=== PATIENT | female | born 1985 | race Hispanic/Latino ===

== ENCOUNTER 2020-09-05 15:00 | Inpatient (IN) | payer OTHER ==
[~2020-09-05] VITALS: Ht 157.5 cm; Wt 360.2 kg
[2020-09-05] MEDS ORDERED: LIDOCAINE HCL 2% VISCOUS 15 ML UDCUP ONE (15:26)
[2020-09-05] MEDS ORDERED: FAMOTIDINE 20MG TAB ONE (15:26)
[2020-09-05] MEDS ORDERED: MAG/ALUM/SIMETH 30 ML UDCUP ONE (15:26)
[2020-09-05] MEDS ORDERED: DICYCLOMINE 20MG (10MG/ML) AMP IM ONE (15:27)
[2020-09-05 15:53] LABS: BASOPHILS % (AUTO) 0.3 % (0.0-5.0); EOSINOPHILS % (AUTO) 0.2 % (0.0-8.0); HEMATOCRIT 46.6 % (36-48); MEAN CORPUSCULAR HEMOGLOBIN 30.3 pg (27.0-33.0); MEAN CORPUSCULAR HGB CONC 34.3 g/dL (32.0-36.0); MEAN CORPUSCULAR VOLUME 88.3 fL (79-99); MONOCYTES % (AUTO) 4.4 % (3.0-13.0); NEUTROPHILS % (AUTO) 89.8 % (40.0-77.0); PLATELET COUNT (AUTO) 272 K/uL (130-400); RED BLOOD CELL COUNT(AUTO) 5.28 MIL/uL (4.00-5.50); RED CELL DISTRIBUTION WIDTH 12.1 % (11.0-15.5)
[2020-09-05 16:01] LABS: HCG,QUAL RESULT NEGATIVE (NEGATIVE)
[2020-09-05 16:02] LABS: APPEARANCE,URINE Clear (CLEAR); BILIRUBIN,URINE Negative (NEGATIVE); COLOR,URINE Yellow (YELLOW); GLUCOSE, URINE (UA) >=1000 mg/dL (NEGATIVE); KETONES,URINE >=80 mg/dL (NEGATIVE); LEUKOCYTE ESTERASE ,URINE Negative (NEGATIVE); NITRATE,URINE Negative (NEGATIVE); OCCULT BLOOD,URINE Negative (NEGATIVE); PH,URINE 6.5 (5.0-8.0); PROTEIN,URINE Negative (NEGATIVE); UROBILINOGEN,URINE 0.2 mg/dL (0.2-1.0)
[2020-09-05 16:07] LABS: CREATININE 0.7 mg/dL (0.5-1.5); POTASSIUM 4.1 mmol/L (3.5-5.1)
[2020-09-05 16:09] LABS: BACTERIA,URINE Rare /HPF (None Seen); RBC,URINE 0-1 /HPF (0-1); SQUAMOUS EPITHELIAL CELL,UR Rare /HPF (0-2); WBC,URINE 0-1 /HPF (0-1); YEAST,URINE BUDDING Rare /HPF (None Seen)
[2020-09-05 16:11] LABS: ALBUMIN 3.7 g/dL (3.5-5.0); BILIRUBIN,TOTAL 1.2 mg/dL (0.2-1.0)
[2020-09-05] MEDS ORDERED: ZOSYN 3.375GM+NS 50ML 50 ML IV ONE (16:27)
[2020-09-05] MEDS ORDERED: INSULIN HUMULIN R 100 UNIT/ML 3ML ONE (16:28)
[2020-09-05] MEDS ORDERED: 0.9% NACL 50ML 50 ML IV ONE (16:29)
[2020-09-05] MEDS ORDERED: NACL 0.9% 1000ML 1,000 ML IV ONE (16:29)
[2020-09-05] MEDS ORDERED: LACTULOSE 20 GM/30 ML UDCUP PO PRN (17:00)
[2020-09-05 19:35] LABS: ABG BASE EXCESS -7.2 mmol/L (-2.0-3.0); ABG HCO3 16.2 mmol/L (21.0-28.0); ABG OXYGEN SATURATION 95.8 % (95.0-99.0); ABG PCO2 28 mmHg (32-45)
[2020-09-05] MEDS: FAMOTIDINE 20MG VIAL IV SCH (21:00)
[2020-09-05] MEDS: ZOSYN 3.375GM+NS 50ML 50 ML IV SCH (21:00)
[2020-09-05 21:15] VITALS: BP 139/86
[2020-09-05] MEDS: NACL 0.9% 1000ML 1,000 ML IV SCH (21:49)
[2020-09-05] MEDS: ONDANSETRON 4MG INJ IV PRN (21:49)
[2020-09-05] MEDS: INSULIN GLARGINE 100 UNITS/ML 10 ML VIAL SQ SCH (22:02)
[2020-09-05] MEDS: INSULIN HUMULIN R 100 UNIT/ML 3ML SQ SCH (22:02)
[2020-09-05] MEDS ORDERED: METF-527 PO (22:22)
[2020-09-06] VITALS (25 sets, daily range): BP systolic 84–159; BP diastolic 49–90
[2020-09-06] MEDS: INSULIN HUMULIN R 100 UNIT/ML 3ML SQ SCH ×5 (00:35→21:46)
[2020-09-06] MEDS: NACL 0.9% 1000ML 1,000 ML IV SCH ×3 (03:00→21:46)
[2020-09-06 04:24] LABS: BASOPHILS % (AUTO) 0.2 % (0.0-5.0); EOSINOPHILS % (AUTO) 0.2 % (0.0-8.0); HEMATOCRIT 45.1 % (36-48); LYMPHOCYTES % (AUTO) 9.3 % (21.0-51.0); MEAN CORPUSCULAR HEMOGLOBIN 30.7 pg (27.0-33.0); MEAN CORPUSCULAR HGB CONC 34.1 g/dL (32.0-36.0); MEAN CORPUSCULAR VOLUME 89.8 fL (79-99); MONOCYTES % (AUTO) 7.6 % (3.0-13.0); NEUTROPHILS % (AUTO) 82.2 % (40.0-77.0); PLATELET COUNT (AUTO) 233 K/uL (130-400); RED BLOOD CELL COUNT(AUTO) 5.02 MIL/uL (4.00-5.50); RED CELL DISTRIBUTION WIDTH 12.3 % (11.0-15.5); WHITE BLOOD COUNT (AUTO) 12.8 K/uL (4.8-10.8)
[2020-09-06 04:41] LABS: ALBUMIN 3.2 g/dL (3.5-5.0); CREATININE 0.7 mg/dL (0.5-1.5); POTASSIUM 3.8 mmol/L (3.5-5.1); TOTAL PROTEIN, SERUM 7.5 g/dL (6.0-8.3)
[2020-09-06] MEDS: ZOSYN 3.375GM+NS 50ML 50 ML IV SCH ×3 (05:55→21:47)
[2020-09-06] MEDS: ONDANSETRON 4MG INJ IV PRN (05:56)
[2020-09-06 08:17] LABS: HEMOGLOBIN A1C 12.1 % (4.0-6.0)
[2020-09-06] MEDS: FAMOTIDINE 20MG VIAL IV SCH ×2 (08:55→21:47)
[2020-09-06] MEDS: HYDROCODONE/ACETAMINOPHEN 5/325 MG TAB PO PRN ×2 (09:00→13:08)
[2020-09-06] MEDS ORDERED: ENOXAPARIN SODIUM 30 MG/0.3 ML SQ SCH (09:00)
[2020-09-06] MEDS ORDERED: BUPIVACAINE/PF 0.5% 30ML VIAL ONE (18:10)
[2020-09-06] MEDS ORDERED: LIDOCAINE HCL MPF 1% 5ML VIAL ONE (18:15)
[2020-09-06] MEDS ORDERED: MIDAZOLAM HCL 1 MG/ML 2ML VIAL ONE ×2 (18:15→19:51)
[2020-09-06] MEDS ORDERED: FENTANYL CITRATE PF 50 MCG/1 ML 2ML VIAL ONE (18:16)
[2020-09-06] MEDS ORDERED: PROPOFOL 10 MG/ML 20ML VIAL IV ONE ×2 (18:16→19:08)
[2020-09-06] MEDS ORDERED: ROCURONIUM 10MG/1ML SYR 10 MG/ML ML ONE (18:16)
[2020-09-06] MEDS ORDERED: NEOSTIGMINE 5MG/5ML SYR IV ONE (19:21)
[2020-09-06] MEDS ORDERED: GLYCOPYRROLATE 1 MG/5 ML SYRINGE ONE (19:21)
[2020-09-06] MEDS ORDERED: MEPERIDINE-PF 25 MG/ML SYG ONE ×2 (19:34→19:47)
[2020-09-06] MEDS ORDERED: KETOROLAC 30MG VIAL (30MG/ML) ONE (19:47)
[2020-09-06] MEDS: INSULIN GLARGINE 100 UNITS/ML 10 ML VIAL SQ SCH (21:44)
[2020-09-07] VITALS (25 sets, daily range): BP systolic 87–149; BP diastolic 49–95
[2020-09-07] MEDS: HYDROCODONE/ACETAMINOPHEN 5/325 MG TAB PO PRN ×2 (01:26→11:09)
[2020-09-07 03:46] LABS: BASOPHILS % (AUTO) 0.2 % (0.0-5.0); EOSINOPHILS % (AUTO) 0.3 % (0.0-8.0); HEMATOCRIT 30.1 % (36-48); LYMPHOCYTES % (AUTO) 5.3 % (21.0-51.0); MEAN CORPUSCULAR HEMOGLOBIN 30.4 pg (27.0-33.0); MEAN CORPUSCULAR HGB CONC 31.2 g/dL (32.0-36.0); MEAN CORPUSCULAR VOLUME 97.4 fL (79-99); MONOCYTES % (AUTO) 4.6 % (3.0-13.0); NEUTROPHILS % (AUTO) 88.6 % (40.0-77.0); PLATELET COUNT (AUTO) 285 K/uL (130-400); RED BLOOD CELL COUNT(AUTO) 3.09 MIL/uL (4.00-5.50); RED CELL DISTRIBUTION WIDTH 12.9 % (11.0-15.5); WHITE BLOOD COUNT (AUTO) 14.4 K/uL (4.8-10.8)
[2020-09-07 04:06] LABS: ALBUMIN 2.1 g/dL (3.5-5.0); BILIRUBIN,TOTAL 0.8 mg/dL (0.2-1.0); CREATININE 1.5 mg/dL (0.5-1.5); POTASSIUM 4.9 mmol/L (3.5-5.1); TOTAL PROTEIN, SERUM 5.4 g/dL (6.0-8.3)
[2020-09-07] MEDS: ZOSYN 3.375GM+NS 50ML 50 ML IV SCH ×3 (05:26→19:45)
[2020-09-07] MEDS: NACL 0.9% 1000ML 1,000 ML IV SCH (05:27)
[2020-09-07] MEDS ORDERED: [UNRECOGNIZED DRUG - MIXTURE] IV SCH (05:30)
[2020-09-07 06:45] LABS: HEMOGLOBIN A1C 12.6 % (4.0-6.0)
[2020-09-07] MEDS ORDERED: INSULIN HUMULIN R 100 UNIT/ML 3ML SQ SCH ×2 (07:30→08:00)
[2020-09-07 08:23] LABS: ABG OXYGEN SATURATION 41.3 % (95.0-99.0); BASE EXCESS,VENOUS BLOOD GAS -15.4 (-2.0-3.0); PCO2,VENOUS BLOOD GAS 34 (32-45); PH,VENOUS BLOOD GAS 7.168 (7.350-7.450)
[2020-09-07] MEDS: FAMOTIDINE 20MG VIAL IV SCH (08:23)
[2020-09-07] MEDS ORDERED: LACTATED RINGERS 1000ML 1,000 ML IV SCH (08:30)
[2020-09-07] MEDS ORDERED: INSULIN REGULAR, HUMAN 3ML 100 UNIT in 0.9%NACL 100ML 99 ML IV PRN ×2 (08:30)
[2020-09-07 08:35] LABS: CREATININE 1.6 mg/dL (0.5-1.5)
[2020-09-07 09:45] LABS: HEMATOCRIT 27.1 % (36-48)
[2020-09-07 09:50] LABS: INR 1.1 (0.85-1.15); PROTHROMBIN TIME 11.9 SEC (9.6-11.6)
[2020-09-07 09:51] LABS: PARTIAL THROMBOPLASTIN TIME 29.6 SEC (26.3-35.5)
[2020-09-07 11:46] LABS: HEMATOCRIT 26.8 % (36-48)
[2020-09-07 12:05] LABS: CREATININE 1.5 mg/dL (0.5-1.5); POTASSIUM 4.7 mmol/L (3.5-5.1)
[2020-09-07 13:04] LABS: PARTIAL THROMBOPLASTIN TIME 20.1 SEC (26.3-35.5)
[2020-09-07] MEDS: FENTANYL CITRATE PF 50 MCG/1 ML 2ML VIAL IVP PRN ×2 (13:06→19:46)
[2020-09-07] MEDS: ONDANSETRON 4MG INJ IV PRN ×2 (13:09→19:27)
[2020-09-07] MEDS ORDERED: COMPOUND IV REFRIGERATED 1 EACH IVSOLN MISC PRN (13:30)
[2020-09-07 13:31] LABS: INR 1.02 (0.85-1.15); PROTHROMBIN TIME 11.1 SEC (9.6-11.6)
[2020-09-07] MEDS ORDERED: SODIUM BICARB 8.4% 50ML SYRING 150 MEQ in DEXTROSE 5%-WATER 1,000 ML IVP SCH (13:45)
[2020-09-07] MEDS: LACTATED RINGERS 1000ML 1,000 ML IV SCH ×2 (16:42→23:56)
[2020-09-07] MEDS ORDERED: LIDOCAINE HCL-MPF 1% 2ML VIAL IV PRN (16:45)
[2020-09-07 17:56] LABS: HEMATOCRIT 25.6 % (36-48)
[2020-09-07 18:13] LABS: CREATININE 1.4 mg/dL (0.5-1.5); POTASSIUM 3.8 mmol/L (3.5-5.1)
[2020-09-07] MEDS ORDERED: 0.9%NACL 100ML 100 ML IV ONE (19:44)
[2020-09-07] MEDS: INSULIN REGULAR, HUMAN 3ML 100 UNIT in 0.9%NACL 100ML 99 ML IV PRN ×2 (19:59)
[2020-09-07] MEDS: DEXTROSE 5%-LACTATED RINGERS 1,000 ML IV SCH (23:25)
[2020-09-08] VITALS (28 sets, daily range): BP systolic 119–182; BP diastolic 57–90
[2020-09-08 00:13] LABS: HEMATOCRIT 22.3 % (36-48)
[2020-09-08 00:21] LABS: CREATININE 1.1 mg/dL (0.5-1.5); POTASSIUM 3.6 mmol/L (3.5-5.1)
[2020-09-08] MEDS ORDERED: PROMETHAZINE HCL 25 MG/ML 1ML AMPULE IM SCH (00:30)
[2020-09-08] MEDS: ONDANSETRON 4MG INJ IV PRN ×3 (01:39→08:30)
[2020-09-08] MEDS: POTASSIUM CHLORIDE 10MEQ/100ML 100 ML IV PRN ×2 (02:35→04:18)
[2020-09-08] MEDS: DEXTROSE 5%-LACTATED RINGERS 1,000 ML IV SCH ×2 (03:19→05:06)
[2020-09-08] MEDS: ZOSYN 3.375GM+NS 50ML 50 ML IV SCH ×3 (04:39→20:10)
[2020-09-08] MEDS ORDERED: [UNRECOGNIZED DRUG - MIXTURE] IV SCH (05:00)
[2020-09-08] MEDS: INSULIN REGULAR, HUMAN 3ML 100 UNIT in 0.9%NACL 100ML 99 ML IV PRN ×2 (05:01)
[2020-09-08] MEDS: LACTATED RINGERS 1000ML 1,000 ML IV SCH (05:06)
[2020-09-08 05:51] LABS: BASOPHILS % (AUTO) 0.1 % (0.0-5.0); LYMPHOCYTES % (AUTO) 7.8 % (21.0-51.0); MEAN CORPUSCULAR HGB CONC 34.2 g/dL (32.0-36.0); MEAN CORPUSCULAR VOLUME 90.5 fL (79-99); MONOCYTES % (AUTO) 8.4 % (3.0-13.0); NEUTROPHILS % (AUTO) 83.1 % (40.0-77.0); PLATELET COUNT (AUTO) 241 K/uL (130-400); RED CELL DISTRIBUTION WIDTH 12.5 % (11.0-15.5); WHITE BLOOD COUNT (AUTO) 10.5 K/uL (4.8-10.8)
[2020-09-08] MEDS ORDERED: 0.9%NACL 250ML 250 ML IV ONE ×2 (06:18→12:04)
[2020-09-08 06:22] LABS: % IRON SATURATION 7.5 % (22-44)
[2020-09-08 06:25] LABS: ALANINE AMINOTRANSFERASE 65 U/L (12-78); ASPARTATE AMINOTRANSFERASE 58 U/L (10-37); BILIRUBIN,DIRECT 0.5 mg/dL (0.0-0.3); CARBON DIOXIDE 19 mmol/L (21-32); CHLORIDE 101 mmol/L (101-111); CREATINE KINASE, TOTAL 151 U/L (21-232); CREATININE 0.9 mg/dL (0.5-1.5); GLOMERULAR FILTR. RATE CALC 76 mL/min (>60); GLUCOSE,RANDOM 146 mg/dL (70-105); LACTATE DEHYDROGENASE 198 U/L (81-234); MYOGLOBIN 43 ng/mL (10-92); POTASSIUM 3.2 mmol/L (3.5-5.1); SODIUM SERUM 132 mmol/L (136-145); TOTAL PROTEIN, SERUM 5.7 g/dL (6.0-8.3); TROPONIN I < 0.04 ng/mL (0.00-0.06); UREA NITROGEN, BLOOD 17 mg/dL (7-18)
[2020-09-08] MEDS: POTASSIUM CHLORIDE 20MEQ/100ML 100 ML IV PRN ×2 (06:31→14:02)
[2020-09-08] MEDS: PANTOPRAZOLE 40 MG/VIAL IVP SCH (08:29)
[2020-09-08 08:39] LABS: ABG BASE EXCESS -5.2 mmol/L (-2.0-3.0); ABG HCO3 18.9 mmol/L (21.0-28.0); ABG OXYGEN SATURATION 90.1 % (95.0-99.0); ABG PCO2 31 mmHg (32-45)
[2020-09-08] MEDS ORDERED: COMPOUND IV MISC 1 EACH IVSOLN MISC PRN (09:15)
[2020-09-08] MEDS ORDERED: SUCCINYLCHOLINE CHLORIDE 20 MG/ML 10 ML VIAL ONE (09:16)
[2020-09-08] MEDS ORDERED: LIDOCAINE PF 100MG/5ML (2%) SYRINGE 5ML ONE (09:16)
[2020-09-08] MEDS ORDERED: ROCURONIUM 10MG/1ML SYR 10 MG/ML ML ONE (09:18)
[2020-09-08] MEDS ORDERED: PROPOFOL 10 MG/ML 20ML VIAL IV ONE (09:18)
[2020-09-08] MEDS ORDERED: FENTANYL CITRATE PF 50 MCG/1 ML 2ML VIAL ONE ×2 (09:18→10:32)
[2020-09-08] MEDS ORDERED: SUCCINYLCHOLINE 200MG/10ML SYR ONE (09:20)
[2020-09-08] MEDS: PHARMACY COMMUNICATION MISC SCH ×2 (09:45→16:12)
[2020-09-08] MEDS ORDERED: NEOSTIGMINE 5MG/5ML SYR IV ONE (10:15)
[2020-09-08] MEDS ORDERED: GLYCOPYRROLATE 1 MG/5 ML SYRINGE ONE (10:15)
[2020-09-08] MEDS ORDERED: MEPERIDINE-PF 25 MG/ML SYG ONE (10:17)
[2020-09-08 10:38] LABS: HEMATOCRIT 23.5 % (36-48)
[2020-09-08 11:14] LABS: CREATININE 0.8 mg/dL (0.5-1.5); POTASSIUM 3.4 mmol/L (3.5-5.1)
[2020-09-08] MEDS: IRON SUCROSE COMPLEX 100 MG in 0.9% NACL 50ML 50 ML IV SCH (12:16)
[2020-09-08] MEDS: INSULIN HUMULIN R 100 UNIT/ML 3ML SQ SCH ×3 (12:19→20:22)
[2020-09-08] MEDS: FLUCONAZOLE 200 MG/NS 100 ML 100 ML IV SCH (15:09)
[2020-09-08] MEDS: MORPHINE 2 MG SYG IVP PRN ×2 (16:17→23:39)
[2020-09-08 17:52] LABS: HEMATOCRIT 26.4 % (36-48)
[2020-09-08 18:00] LABS: CREATININE 0.8 mg/dL (0.5-1.5); POTASSIUM 3.5 mmol/L (3.5-5.1)
[2020-09-08] MEDS ORDERED: GLUCAGON 1MG KIT 1 MG ML IM PRN (18:15)
[2020-09-08] MEDS ORDERED: DEXTROSE 50%-WATER 50 ML DISP.SYRIN IV PRN (18:15)
[2020-09-08] MEDS: INSULIN GLARGINE 100 UNITS/ML 10 ML VIAL SQ SCH (20:22)
[2020-09-08] MEDS ORDERED: INSULIN GLARGINE 100 UNITS/ML 10 ML VIAL SQ SCH (21:00)
[2020-09-09] VITALS (12 sets, daily range): BP systolic 123–142; BP diastolic 70–79
[2020-09-09] MEDS: ACETAMINOPHEN 325 MG TAB PO PRN ×2 (03:39→20:52)
[2020-09-09] MEDS: HYDROMORPHONE 0.5 MG SYG (0.5MG/0.5ML) IVP PRN ×2 (03:45→07:49)
[2020-09-09 04:07] LABS: HEMATOCRIT 25.4 % (36-48)
[2020-09-09 04:21] LABS: CREATININE 0.8 mg/dL (0.5-1.5); POTASSIUM 3.5 mmol/L (3.5-5.1)
[2020-09-09] MEDS: ZOSYN 3.375GM+NS 50ML 50 ML IV SCH ×3 (05:02→20:53)
[2020-09-09] MEDS: POTASSIUM CHLORIDE 10% ELIXIR 20 MEQ/15 ML UDCUP PO PRN (05:03)
[2020-09-09] MEDS: INSULIN HUMULIN R 100 UNIT/ML 3ML SQ SCH ×4 (05:51→21:11)
[2020-09-09] MEDS: PANTOPRAZOLE 40 MG/VIAL IVP SCH (07:49)
[2020-09-09] MEDS: IRON SUCROSE COMPLEX 100 MG in 0.9% NACL 50ML 50 ML IV SCH (07:49)
[2020-09-09] MEDS: KCL 20 MEQ ERTAB PO PRN (09:25)
[2020-09-09] MEDS: ONDANSETRON 4MG INJ IV PRN (09:55)
[2020-09-09] MEDS: MORPHINE 2 MG SYG IVP PRN (09:59)
[2020-09-09] MEDS: FLUCONAZOLE 200 MG/NS 100 ML 100 ML IV SCH (13:26)
[2020-09-09 16:00] LABS: HEMATOCRIT 26.2 % (36-48)
[2020-09-09] MEDS: SIMETHICONE 80 MG TAB.CHEW PO SCH (17:41)
[2020-09-09] MEDS ORDERED: DEXTROSE 50%-WATER 50 ML DISP.SYRIN IV PRN (18:00)
[2020-09-09] MEDS ORDERED: GLUCAGON 1MG KIT 1 MG ML IM PRN (18:00)
[2020-09-09 21:08] LABS: CHLAMYDIA DNA N.A.AMPLIFY Negative (Negative)
[2020-09-09] MEDS: INSULIN GLARGINE 100 UNITS/ML 10 ML VIAL SQ SCH (21:12)
[2020-09-10 03:16] VITALS: BP 140/82
[2020-09-10] MEDS: ACETAMINOPHEN 325 MG TAB PO PRN ×2 (03:33→12:40)
[2020-09-10 04:33] LABS: BASOPHILS % (AUTO) 0.2 % (0.0-5.0); EOSINOPHILS % (AUTO) 0.7 % (0.0-8.0); HEMATOCRIT 26.1 % (36-48); LYMPHOCYTES % (AUTO) 13.4 % (21.0-51.0); MEAN CORPUSCULAR HEMOGLOBIN 29.3 pg (27.0-33.0); MEAN CORPUSCULAR HGB CONC 33.7 g/dL (32.0-36.0); MONOCYTES % (AUTO) 9.3 % (3.0-13.0); NEUTROPHILS % (AUTO) 75.6 % (40.0-77.0); PLATELET COUNT (AUTO) 351 K/uL (130-400); RED CELL DISTRIBUTION WIDTH 14.7 % (11.0-15.5); WHITE BLOOD COUNT (AUTO) 10.5 K/uL (4.8-10.8)
[2020-09-10 04:50] LABS: ALBUMIN 1.7 g/dL (3.5-5.0); BILIRUBIN,TOTAL 3.7 mg/dL (0.2-1.0); CREATININE 0.8 mg/dL (0.5-1.5); POTASSIUM 3.2 mmol/L (3.5-5.1); TOTAL PROTEIN, SERUM 5.9 g/dL (6.0-8.3)
[2020-09-10] MEDS: KCL 20 MEQ ERTAB PO PRN ×3 (05:23→10:16)
[2020-09-10] MEDS: ZOSYN 3.375GM+NS 50ML 50 ML IV SCH ×3 (05:23→20:16)
[2020-09-10] MEDS: INSULIN HUMULIN R 100 UNIT/ML 3ML SQ SCH ×5 (06:36→20:19)
[2020-09-10] MEDS: PANTOPRAZOLE 40 MG TAB DR PO SCH (08:15)
[2020-09-10] MEDS: SIMETHICONE 80 MG TAB.CHEW PO SCH ×3 (08:15→17:05)
[2020-09-10 08:39] VITALS: BP 132/89
[2020-09-10 11:27] VITALS: BP 147/86
[2020-09-10 13:05] LABS: BILIRUBIN,DIRECT 2.9 mg/dL (0.0-0.3); BILIRUBIN,TOTAL 3.8 mg/dL (0.2-1.0)
[2020-09-10 16:00] VITALS: BP 142/84
[2020-09-10] MEDS: FLUCONAZOLE 200 MG/NS 100 ML 100 ML IV SCH (17:05)
[2020-09-10] MEDS: MORPHINE 2 MG SYG IVP PRN (17:50)
[2020-09-10 19:35] VITALS: BP 130/79
[2020-09-10] MEDS ORDERED: INSULIN GLARGINE 100 UNITS/ML 10 ML VIAL SQ SCH (21:00)
[2020-09-10 23:31] VITALS: BP 156/86
[2020-09-11] MEDS ORDERED: TRAMADOL HCL 50 MG TABLET PO ONE
[2020-09-11 03:12] VITALS: BP 138/77
[2020-09-11 03:38] LABS: BASOPHILS % (AUTO) 0.2 % (0.0-5.0); EOSINOPHILS % (AUTO) 1.3 % (0.0-8.0); HEMATOCRIT 26.7 % (36-48); LYMPHOCYTES % (AUTO) 9.9 % (21.0-51.0); MEAN CORPUSCULAR HEMOGLOBIN 29.4 pg (27.0-33.0); MEAN CORPUSCULAR HGB CONC 34.1 g/dL (32.0-36.0); MEAN CORPUSCULAR VOLUME 86.4 fL (79-99); MONOCYTES % (AUTO) 6.7 % (3.0-13.0); PLATELET COUNT (AUTO) 418 K/uL (130-400); RED BLOOD CELL COUNT(AUTO) 3.09 MIL/uL (4.00-5.50); RED CELL DISTRIBUTION WIDTH 14.1 % (11.0-15.5); WHITE BLOOD COUNT (AUTO) 12.7 K/uL (4.8-10.8)
[2020-09-11 03:56] LABS: ALBUMIN 1.7 g/dL (3.5-5.0); BILIRUBIN,TOTAL 4.4 mg/dL (0.2-1.0); CREATININE 0.8 mg/dL (0.5-1.5); MAGNESIUM 1.5 mg/dL (1.80-2.40); POTASSIUM 3.3 mmol/L (3.5-5.1); TOTAL PROTEIN, SERUM 6.1 g/dL (6.0-8.3)
[2020-09-11] MEDS: ZOSYN 3.375GM+NS 50ML 50 ML IV SCH ×3 (05:18→19:52)
[2020-09-11] MEDS: PANTOPRAZOLE 40 MG TAB DR PO SCH (06:00)
[2020-09-11] MEDS: KCL 20 MEQ ERTAB PO PRN (06:00)
[2020-09-11] MEDS: INSULIN HUMULIN R 100 UNIT/ML 3ML SQ SCH ×7 (06:02→22:41)
[2020-09-11 07:30] VITALS: BP 125/85
[2020-09-11] MEDS: SIMETHICONE 80 MG TAB.CHEW PO SCH ×3 (08:23→17:43)
[2020-09-11] MEDS: ACETAMINOPHEN 325 MG TAB PO PRN ×2 (09:42→19:52)
[2020-09-11 11:45] VITALS: BP 127/83
[2020-09-11] MEDS: MAGNESIUM 2GM PREMIX 50ML 50 ML IV PRN (12:39)
[2020-09-11] MEDS: FLUCONAZOLE 200 MG/NS 100 ML 100 ML IV SCH (16:51)
[2020-09-11 18:35] VITALS: BP 135/82
[2020-09-11 20:02] VITALS: BP 156/87
[2020-09-11] MEDS: INSULIN GLARGINE 100 UNITS/ML 10 ML VIAL SQ SCH (22:40)
[2020-09-11 23:56] VITALS: BP 135/77
[2020-09-12 04:02] LABS: BASOPHILS % (AUTO) 0.2 % (0.0-5.0); EOSINOPHILS % (AUTO) 2.8 % (0.0-8.0); HEMATOCRIT 27.9 % (36-48); LYMPHOCYTES % (AUTO) 9.5 % (21.0-51.0); MEAN CORPUSCULAR HEMOGLOBIN 29.7 pg (27.0-33.0); MEAN CORPUSCULAR HGB CONC 34.4 g/dL (32.0-36.0); MEAN CORPUSCULAR VOLUME 86.4 fL (79-99); MONOCYTES % (AUTO) 6.2 % (3.0-13.0); NEUTROPHILS % (AUTO) 78.9 % (40.0-77.0); NUCLEATED RED BLOOD CELLS 0.1 % (0.0-0.19); PLATELET COUNT (AUTO) 491 K/uL (130-400); RED BLOOD CELL COUNT(AUTO) 3.23 MIL/uL (4.00-5.50); RED CELL DISTRIBUTION WIDTH 13.9 % (11.0-15.5); WHITE BLOOD COUNT (AUTO) 13.5 K/uL (4.8-10.8)
[2020-09-12 04:07] VITALS: BP 131/61
[2020-09-12 04:31] LABS: ALBUMIN 1.7 g/dL (3.5-5.0); BILIRUBIN,DIRECT 3.8 mg/dL (0.0-0.3); BILIRUBIN,TOTAL 5.1 mg/dL (0.2-1.0); CREATININE 0.8 mg/dL (0.5-1.5); MAGNESIUM 1.7 mg/dL (1.80-2.40); POTASSIUM 3.3 mmol/L (3.5-5.1); TOTAL PROTEIN, SERUM 6.3 g/dL (6.0-8.3)
[2020-09-12] MEDS: MAGNESIUM 2GM PREMIX 50ML 50 ML IV PRN (05:43)
[2020-09-12] MEDS: PANTOPRAZOLE 40 MG TAB DR PO SCH (05:43)
[2020-09-12] MEDS: ZOSYN 3.375GM+NS 50ML 50 ML IV SCH ×3 (05:43→22:25)
[2020-09-12] MEDS: INSULIN HUMULIN R 100 UNIT/ML 3ML SQ SCH ×6 (06:04→22:38)
[2020-09-12 08:00] VITALS: BP 125/86
[2020-09-12] MEDS: SIMETHICONE 80 MG TAB.CHEW PO SCH ×3 (09:31→18:00)
[2020-09-12] MEDS: ACETAMINOPHEN 325 MG TAB PO PRN (09:34)
[2020-09-12 12:00] VITALS: BP 135/85
[2020-09-12] MEDS ORDERED: KCL 20 MEQ ERTAB PO SCH (15:45)
[2020-09-12] MEDS: FLUCONAZOLE 200 MG/NS 100 ML 100 ML IV SCH (17:00)
[2020-09-12] MEDS: LUBIPROSTONE 24 MCG CAP PO SCH (17:00)
[2020-09-12 19:06] VITALS: BP 129/73
[2020-09-12] MEDS ORDERED: 0.9% NACL 50ML 50 ML IV ONE (22:21)
[2020-09-12] MEDS: INSULIN GLARGINE 100 UNITS/ML 10 ML VIAL SQ SCH (22:35)
[2020-09-12] MEDS ORDERED: HYDROXYZINE 25 MG TABLET PO SCH (23:00)
[2020-09-12 23:28] VITALS: BP 139/78
[2020-09-13] MEDS: HYDROCODONE/ACETAMINOPHEN 5/325 MG TAB PO PRN ×4 (00:55→22:52)
[2020-09-13 03:48] VITALS: BP 115/72
[2020-09-13] MEDS: ZOSYN 3.375GM+NS 50ML 50 ML IV SCH ×3 (04:50→19:49)
[2020-09-13] MEDS: PANTOPRAZOLE 40 MG TAB DR PO SCH (04:50)
[2020-09-13 04:57] LABS: BASOPHILS % (AUTO) 0.5 % (0.0-5.0); EOSINOPHILS % (AUTO) 4.2 % (0.0-8.0); HEMATOCRIT 28.2 % (36-48); LYMPHOCYTES % (AUTO) 11.8 % (21.0-51.0); MEAN CORPUSCULAR HEMOGLOBIN 30.4 pg (27.0-33.0); MEAN CORPUSCULAR HGB CONC 34.4 g/dL (32.0-36.0); MEAN CORPUSCULAR VOLUME 88.4 fL (79-99); PLATELET COUNT (AUTO) 452 K/uL (130-400); RED BLOOD CELL COUNT(AUTO) 3.19 MIL/uL (4.00-5.50); RED CELL DISTRIBUTION WIDTH 14.1 % (11.0-15.5); WHITE BLOOD COUNT (AUTO) 13.6 K/uL (4.8-10.8)
[2020-09-13 05:05] LABS: INR 1.1 (0.85-1.15); PROTHROMBIN TIME 11.9 SEC (9.6-11.6)
[2020-09-13 05:06] LABS: PARTIAL THROMBOPLASTIN TIME 25.4 SEC (26.3-35.5)
[2020-09-13 05:18] LABS: ALBUMIN 1.6 g/dL (3.5-5.0); BILIRUBIN,DIRECT 3.4 mg/dL (0.0-0.3); BILIRUBIN,TOTAL 4.6 mg/dL (0.2-1.0); CREATININE 0.8 mg/dL (0.5-1.5); MAGNESIUM 1.7 mg/dL (1.80-2.40); PHOSPHORUS 3.8 mg/dL (2.5-4.9); POTASSIUM 3.4 mmol/L (3.5-5.1); TOTAL PROTEIN, SERUM 6.3 g/dL (6.0-8.3)
[2020-09-13] MEDS: MAGNESIUM 2GM PREMIX 50ML 50 ML IV PRN (05:39)
[2020-09-13] MEDS: INSULIN HUMULIN R 100 UNIT/ML 3ML SQ SCH ×7 (05:40→19:45)
[2020-09-13 08:00] VITALS: BP 130/88
[2020-09-13] MEDS ORDERED: POTASSIUM CHLORIDE 10% ELIXIR 20 MEQ/15 ML UDCUP PO SCH (09:00)
[2020-09-13] MEDS: LUBIPROSTONE 24 MCG CAP PO SCH ×2 (09:47→16:55)
[2020-09-13] MEDS: SIMETHICONE 80 MG TAB.CHEW PO SCH ×3 (09:54→18:00)
[2020-09-13 12:00] VITALS: BP 140/89
[2020-09-13] MEDS: FLUCONAZOLE 200 MG/NS 100 ML 100 ML IV SCH (14:25)
[2020-09-13 16:00] VITALS: BP 117/85
[2020-09-13 19:34] VITALS: BP 130/88
[2020-09-13] MEDS: INSULIN GLARGINE 100 UNITS/ML 10 ML VIAL SQ SCH (19:55)
[2020-09-13] MEDS ORDERED: HYDROXYZINE 25 MG TABLET ONE (22:45)
[2020-09-13] MEDS ORDERED: HYDROXYZINE 25 MG TABLET PO SCH (23:00)
[2020-09-13 23:42] VITALS: BP_SYST 138; BP_SYST 152; BP_DIAS 71; BP_DIAS 88
[2020-09-14 03:47] VITALS: BP 126/76
[2020-09-14] MEDS: HYDROCODONE/ACETAMINOPHEN 5/325 MG TAB PO PRN ×2 (05:02→19:50)
[2020-09-14] MEDS: PANTOPRAZOLE 40 MG TAB DR PO SCH (05:02)
[2020-09-14] MEDS: ZOSYN 3.375GM+NS 50ML 50 ML IV SCH ×3 (05:03→20:15)
[2020-09-14 05:23] LABS: BASOPHILS % (AUTO) 0.5 % (0.0-5.0); EOSINOPHILS % (AUTO) 3.7 % (0.0-8.0); HEMATOCRIT 30.5 % (36-48); LYMPHOCYTES % (AUTO) 13.5 % (21.0-51.0); MEAN CORPUSCULAR HGB CONC 33.1 g/dL (32.0-36.0); MEAN CORPUSCULAR VOLUME 90.5 fL (79-99); NEUTROPHILS % (AUTO) 73.5 % (40.0-77.0); PLATELET COUNT (AUTO) 694 K/uL (130-400); RED BLOOD CELL COUNT(AUTO) 3.37 MIL/uL (4.00-5.50); RED CELL DISTRIBUTION WIDTH 14.3 % (11.0-15.5); WHITE BLOOD COUNT (AUTO) 15.9 K/uL (4.8-10.8)
[2020-09-14 05:46] LABS: CHOLESTEROL 134 mg/dL (<200); HDL CHOLESTEROL 17 mg/dL (35-85); LDL DIRECT 84 mg/dL (0-99); TRIGLYCERIDES 149 mg/dL (30-200)
[2020-09-14 06:23] LABS: ALBUMIN 1.6 g/dL (3.5-5.0); BILIRUBIN,TOTAL 3.7 mg/dL (0.2-1.0); CREATININE 0.8 mg/dL (0.5-1.5); POTASSIUM 3.5 mmol/L (3.5-5.1); TOTAL PROTEIN, SERUM 6.8 g/dL (6.0-8.3)
[2020-09-14] MEDS: INSULIN HUMULIN R 100 UNIT/ML 3ML SQ SCH ×6 (06:30→17:09)
[2020-09-14] MEDS: SIMETHICONE 80 MG TAB.CHEW PO SCH ×3 (08:30→17:09)
[2020-09-14] MEDS: LUBIPROSTONE 24 MCG CAP PO SCH ×2 (09:10→16:51)
[2020-09-14 09:59] VITALS: BP 133/77
[2020-09-14 12:36] VITALS: BP 100/57
[2020-09-14] MEDS: FLUCONAZOLE 200 MG/NS 100 ML 100 ML IV SCH (15:07)
[2020-09-14 16:37] VITALS: BP 115/76
[2020-09-14] MEDS ORDERED: BISACODYL 10 MG SUPP.RECT RC ONE (19:15)
[2020-09-14 19:39] VITALS: BP 125/80
[2020-09-14] MEDS: DOCUSATE SODIUM 100 MG CAP PO SCH (20:14)
[2020-09-14] MEDS ORDERED: INSULIN GLARGINE 100 UNITS/ML 10 ML VIAL SQ SCH (21:00)
[2020-09-15] VITALS (7 sets, daily range): BP systolic 118–143; BP diastolic 72–81
[2020-09-15] MEDS: HYDROCODONE/ACETAMINOPHEN 5/325 MG TAB PO PRN ×2 (00:59→20:01)
[2020-09-15 04:34] LABS: BASOPHILS % (AUTO) 0.4 % (0.0-5.0); HEMATOCRIT 29.9 % (36-48); MEAN CORPUSCULAR HEMOGLOBIN 29.7 pg (27.0-33.0); MEAN CORPUSCULAR HGB CONC 32.8 g/dL (32.0-36.0); MEAN CORPUSCULAR VOLUME 90.6 fL (79-99); MONOCYTES % (AUTO) 5.9 % (3.0-13.0); NEUTROPHILS % (AUTO) 75.8 % (40.0-77.0); PLATELET COUNT (AUTO) 683 K/uL (130-400); RED CELL DISTRIBUTION WIDTH 14.4 % (11.0-15.5); WHITE BLOOD COUNT (AUTO) 15.2 K/uL (4.8-10.8)
[2020-09-15 05:00] LABS: ALBUMIN 1.5 g/dL (3.5-5.0); BILIRUBIN,DIRECT 2.7 mg/dL (0.0-0.3); BILIRUBIN,TOTAL 3.5 mg/dL (0.2-1.0); CREATININE 0.9 mg/dL (0.5-1.5); POTASSIUM 4.1 mmol/L (3.5-5.1); TOTAL PROTEIN, SERUM 6.6 g/dL (6.0-8.3)
[2020-09-15 05:33] LABS: CRP QUANTITATIVE 266.8 mg/L (0.00-9.0)
[2020-09-15] MEDS: ZOSYN 3.375GM+NS 50ML 50 ML IV SCH ×3 (05:38→19:54)
[2020-09-15] MEDS: INSULIN HUMULIN R 100 UNIT/ML 3ML SQ SCH ×7 (06:13→18:00)
[2020-09-15] MEDS: PANTOPRAZOLE 40 MG TAB DR PO SCH (07:33)
[2020-09-15] MEDS: DOCUSATE SODIUM 100 MG CAP PO SCH ×2 (09:03→19:54)
[2020-09-15] MEDS ORDERED: DIATR MEGLU/DIATRIZOATE SODIUM 30 ML BOTTLE ONE (11:23)
[2020-09-15] MEDS: FLUCONAZOLE 200 MG/NS 100 ML 100 ML IV SCH (15:49)
[2020-09-15] MEDS ORDERED: IOHEXOL-350 75 ML VIAL IV ONE (16:34)
[2020-09-15] MEDS: INSULIN GLARGINE 100 UNITS/ML 10 ML VIAL SQ SCH (19:57)
[2020-09-15] MEDS ORDERED: ZOLPIDEM TARTRATE 5 MG TAB PO ONE (21:45)
[2020-09-16 03:58] VITALS: BP 103/68
[2020-09-16 03:59] LABS: BASOPHILS % (AUTO) 0.4 % (0.0-5.0); HEMATOCRIT 31.4 % (36-48); LYMPHOCYTES % (AUTO) 12.9 % (21.0-51.0); MEAN CORPUSCULAR HEMOGLOBIN 29.8 pg (27.0-33.0); MEAN CORPUSCULAR HGB CONC 32.5 g/dL (32.0-36.0); MEAN CORPUSCULAR VOLUME 91.8 fL (79-99); MONOCYTES % (AUTO) 5.2 % (3.0-13.0); NEUTROPHILS % (AUTO) 75.5 % (40.0-77.0); RED BLOOD CELL COUNT(AUTO) 3.42 MIL/uL (4.00-5.50); RED CELL DISTRIBUTION WIDTH 14.4 % (11.0-15.5); WHITE BLOOD COUNT (AUTO) 17.2 K/uL (4.8-10.8)
[2020-09-16 04:13] LABS: PLATELET COUNT (AUTO) 723 K/uL (130-400)
[2020-09-16 04:27] LABS: ALBUMIN 1.6 g/dL (3.5-5.0); BILIRUBIN,DIRECT 2.4 mg/dL (0.0-0.3); BILIRUBIN,TOTAL 3.3 mg/dL (0.2-1.0); POTASSIUM 3.7 mmol/L (3.5-5.1); TOTAL PROTEIN, SERUM 7.3 g/dL (6.0-8.3)
[2020-09-16 04:44] LABS: PLATELET MORPHOLOGY COMMENT MARKED INCREASE
[2020-09-16 04:51] LABS: CRP QUANTITATIVE 275.8 mg/L (0.00-9.0)
[2020-09-16] MEDS: ZOSYN 3.375GM+NS 50ML 50 ML IV SCH ×3 (05:06→22:45)
[2020-09-16] MEDS: INSULIN HUMULIN R 100 UNIT/ML 3ML SQ SCH ×8 (06:00→21:00)
[2020-09-16 08:15] VITALS: BP 137/76
[2020-09-16] MEDS: POTASSIUM CHLORIDE 10% ELIXIR 20 MEQ/15 ML UDCUP PO PRN (09:39)
[2020-09-16] MEDS: DOCUSATE SODIUM 100 MG CAP PO SCH ×2 (09:40→21:29)
[2020-09-16] MEDS: PANTOPRAZOLE 40 MG TAB DR PO SCH (09:40)
[2020-09-16 11:46] VITALS: BP 125/75
[2020-09-16] MEDS: KCL 20 MEQ ERTAB PO PRN (11:55)
[2020-09-16] MEDS: FLUCONAZOLE 200 MG/NS 100 ML 100 ML IV SCH (15:01)
[2020-09-16 17:12] VITALS: BP 118/79
[2020-09-16] MEDS: MAGNESIUM 2GM PREMIX 50ML 50 ML IV PRN (18:38)
[2020-09-16 20:00] VITALS: BP 106/64
[2020-09-16] MEDS: INSULIN GLARGINE 100 UNITS/ML 10 ML VIAL SQ SCH (21:35)
[2020-09-16] MEDS ORDERED: ZOLPIDEM TARTRATE 5 MG TAB PO SCH (22:30)
[2020-09-16] MEDS ORDERED: ZOLPIDEM TARTRATE 5 MG TAB ONE (22:38)
[2020-09-16] MEDS: HYDROCODONE/ACETAMINOPHEN 5/325 MG TAB PO PRN (22:44)
[2020-09-17] VITALS (13 sets, daily range): BP systolic 108–156; BP diastolic 61–86
[2020-09-17 04:23] LABS: BASOPHILS % (AUTO) 0.4 % (0.0-5.0); EOSINOPHILS % (AUTO) 2.5 % (0.0-8.0); HEMATOCRIT 27.8 % (36-48); LYMPHOCYTES % (AUTO) 11.8 % (21.0-51.0); MEAN CORPUSCULAR HEMOGLOBIN 30.1 pg (27.0-33.0); MEAN CORPUSCULAR HGB CONC 33.1 g/dL (32.0-36.0); MEAN CORPUSCULAR VOLUME 90.8 fL (79-99); MONOCYTES % (AUTO) 5.2 % (3.0-13.0); NEUTROPHILS % (AUTO) 77.9 % (40.0-77.0); PLATELET COUNT (AUTO) 689 K/uL (130-400); RED BLOOD CELL COUNT(AUTO) 3.06 MIL/uL (4.00-5.50); RED CELL DISTRIBUTION WIDTH 14.4 % (11.0-15.5); WHITE BLOOD COUNT (AUTO) 14.1 K/uL (4.8-10.8)
[2020-09-17 04:38] LABS: INR 1.11 (0.85-1.15)
[2020-09-17 04:39] LABS: PARTIAL THROMBOPLASTIN TIME 27.3 SEC (26.3-35.5)
[2020-09-17 04:48] LABS: ALBUMIN 1.5 g/dL (3.5-5.0); BILIRUBIN,DIRECT 2.1 mg/dL (0.0-0.3); BILIRUBIN,TOTAL 2.8 mg/dL (0.2-1.0); CREATININE 0.9 mg/dL (0.5-1.5); POTASSIUM 3.7 mmol/L (3.5-5.1); TOTAL PROTEIN, SERUM 6.6 g/dL (6.0-8.3)
[2020-09-17 05:25] LABS: CRP QUANTITATIVE 219.3 mg/L (0.00-9.0)
[2020-09-17] MEDS: PANTOPRAZOLE 40 MG TAB DR PO SCH (06:18)
[2020-09-17] MEDS: INSULIN HUMULIN R 100 UNIT/ML 3ML SQ SCH ×8 (06:19→21:14)
[2020-09-17] MEDS: ZOSYN 3.375GM+NS 50ML 50 ML IV SCH ×3 (06:25→21:01)
[2020-09-17] MEDS: DOCUSATE SODIUM 100 MG CAP PO SCH ×2 (08:25→21:01)
[2020-09-17] MEDS: HYDROCODONE/ACETAMINOPHEN 5/325 MG TAB PO PRN (08:52)
[2020-09-17] MEDS: MORPHINE 4 MG SYG IV PRN ×3 (10:46→23:40)
[2020-09-17] MEDS: FLUCONAZOLE 200 MG/NS 100 ML 100 ML IV SCH (14:02)
[2020-09-17] MEDS ORDERED: FENTANYL CITRATE PF 50 MCG/1 ML 2ML VIAL ONE (15:07)
[2020-09-17] MEDS ORDERED: MIDAZOLAM HCL 1 MG/ML 2ML VIAL ONE (15:08)
[2020-09-17 17:29] LABS: SPECIMENTYPE,BODY FLUID PERITONEAL
[2020-09-17 17:30] LABS: APPEARANCE BODY FLUID CLOUDY (CLEAR); BODY FLUID RBC 250 /cu. mm.; BODY FLUID WBC 485 /cu. mm.; COLOR,BODY FLUID DARK YELLOW (LT YELLOW); TOTAL VOLUME,BODY FLUID 8 mL
[2020-09-17 18:26] LABS: BF EOSINOPHIL 4 %; BF LYMPHOCYTE 55 %; BF MESOTHELIAL 15 %; BF MONOCYTE 6 %
[2020-09-17] MEDS: INSULIN GLARGINE 100 UNITS/ML 10 ML VIAL SQ SCH (21:13)
[2020-09-18] VITALS (26 sets, daily range): BP systolic 101–142; BP diastolic 52–84
[2020-09-18 06:00] LABS: CREATININE 0.9 mg/dL (0.5-1.5); POTASSIUM 3.5 mmol/L (3.5-5.1)
[2020-09-18] MEDS: ZOSYN 3.375GM+NS 50ML 50 ML IV SCH ×3 (06:00→21:03)
[2020-09-18 06:05] LABS: HEMATOCRIT 28.5 % (36-48); MEAN CORPUSCULAR HEMOGLOBIN 29.6 pg (27.0-33.0); MEAN CORPUSCULAR VOLUME 89.6 fL (79-99); RED BLOOD CELL COUNT(AUTO) 3.18 MIL/uL (4.00-5.50); RED CELL DISTRIBUTION WIDTH 13.9 % (11.0-15.5); WHITE BLOOD COUNT (AUTO) 13.2 K/uL (4.8-10.8)
[2020-09-18] MEDS: MORPHINE 4 MG SYG IV PRN ×2 (06:12→23:52)
[2020-09-18 06:13] LABS: PLATELET COUNT (AUTO) 767 K/uL (130-400)
[2020-09-18] MEDS: INSULIN HUMULIN R 100 UNIT/ML 3ML SQ SCH ×7 (06:21→21:35)
[2020-09-18] MEDS: PANTOPRAZOLE 40 MG TAB DR PO SCH (06:21)
[2020-09-18] MEDS: DOCUSATE SODIUM 100 MG CAP PO SCH ×2 (07:49→20:38)
[2020-09-18 08:40] LABS: EOSINOPHILS % (MANUAL) 1 % (1-6); LYMPHOCYTES % (MANUAL) 13 % (22-44); MONOCYTES % (MANUAL) 7 % (2-9); PLATELET MORPHOLOGY COMMENT INCREASED; SEGMENTED NEUTROPHILS % 79 % (40-70)
[2020-09-18] MEDS ORDERED: IOHEXOL-350 50ML VIAL IV ONE (10:44)
[2020-09-18] MEDS ORDERED: INDOMETHACIN 50 MG SUPP.RECT RC SCH (11:00)
[2020-09-18] MEDS ORDERED: LIDOCAINE PF 100MG/5ML (2%) SYRINGE 5ML ONE (11:01)
[2020-09-18] MEDS ORDERED: SUCCINYLCHOLINE CHLORIDE 20 MG/ML 10 ML VIAL ONE (11:01)
[2020-09-18] MEDS ORDERED: FENTANYL CITRATE PF 50 MCG/1 ML 2ML VIAL ONE (11:02)
[2020-09-18] MEDS ORDERED: PROPOFOL 10 MG/ML 20ML VIAL IV ONE (11:02)
[2020-09-18] MEDS ORDERED: ONDANSETRON 4MG INJ ONE (11:02)
[2020-09-18] MEDS ORDERED: MIDAZOLAM HCL 1 MG/ML 2ML VIAL ONE (11:03)
[2020-09-18] MEDS: FLUCONAZOLE 200 MG/NS 100 ML 100 ML IV SCH (14:05)
[2020-09-18] MEDS: ONDANSETRON 4MG INJ IV PRN (14:27)
[2020-09-18 14:50] LABS: HEMATOCRIT 29.4 % (36-48); MEAN CORPUSCULAR HEMOGLOBIN 29.9 pg (27.0-33.0); MEAN CORPUSCULAR HGB CONC 32.7 g/dL (32.0-36.0); MEAN CORPUSCULAR VOLUME 91.6 fL (79-99); RED BLOOD CELL COUNT(AUTO) 3.21 MIL/uL (4.00-5.50); RED CELL DISTRIBUTION WIDTH 14.3 % (11.0-15.5); WHITE BLOOD COUNT (AUTO) 15.1 K/uL (4.8-10.8)
[2020-09-18 15:01] LABS: PLATELET COUNT (AUTO) 736 K/uL (130-400)
[2020-09-18 15:05] LABS: INR 1.11 (0.85-1.15)
[2020-09-18 15:06] LABS: CREATININE 0.9 mg/dL (0.5-1.5); PARTIAL THROMBOPLASTIN TIME 27.3 SEC (26.3-35.5)
[2020-09-18 15:11] LABS: ALBUMIN 1.5 g/dL (3.5-5.0); BILIRUBIN,TOTAL 2.5 mg/dL (0.2-1.0); TOTAL PROTEIN, SERUM 6.7 g/dL (6.0-8.3)
[2020-09-18 15:28] LABS: ABG BASE EXCESS 3.1 mmol/L (-2.0-3.0); ABG HCO3 27.2 mmol/L (21.0-28.0); ABG OXYGEN SATURATION 96.8 % (95.0-99.0); ABG PCO2 40 mmHg (32-45)
[2020-09-18 16:27] LABS: EOSINOPHILS % (MANUAL) 2 % (1-6); LYMPHOCYTES % (MANUAL) 4 % (22-44); MAN.DIFF COMMENT-IMPRESSION MANUAL DIFFERENTIAL; MONOCYTES % (MANUAL) 2 % (2-9); SEGMENTED NEUTROPHILS % 92 % (40-70)
[2020-09-18 16:28] LABS: PLATELET MORPHOLOGY COMMENT INCREASED
[2020-09-18] MEDS: NACL 0.9% 1000ML 1,000 ML IV SCH (19:30)
[2020-09-18] MEDS: INSULIN GLARGINE 100 UNITS/ML 10 ML VIAL SQ SCH (21:36)
[2020-09-18] MEDS: ZOLPIDEM TARTRATE 5 MG TAB PO PRN (23:37)
[2020-09-19] VITALS (21 sets, daily range): BP systolic 101–139; BP diastolic 57–85
[2020-09-19] MEDS: NACL 0.9% 1000ML 1,000 ML IV SCH ×3 (03:28→18:20)
[2020-09-19] MEDS: ZOSYN 3.375GM+NS 50ML 50 ML IV SCH ×2 (03:28→12:06)
[2020-09-19 03:55] LABS: HEMATOCRIT 29.2 % (36-48); MEAN CORPUSCULAR HEMOGLOBIN 29.2 pg (27.0-33.0); MEAN CORPUSCULAR HGB CONC 32.5 g/dL (32.0-36.0); MEAN CORPUSCULAR VOLUME 89.8 fL (79-99); RED BLOOD CELL COUNT(AUTO) 3.25 MIL/uL (4.00-5.50); RED CELL DISTRIBUTION WIDTH 14.1 % (11.0-15.5); WHITE BLOOD COUNT (AUTO) 12.6 K/uL (4.8-10.8)
[2020-09-19 04:08] LABS: CREATININE 0.8 mg/dL (0.5-1.5); MAGNESIUM 1.7 mg/dL (1.80-2.40); POTASSIUM 3.4 mmol/L (3.5-5.1)
[2020-09-19] MEDS: INSULIN HUMULIN R 100 UNIT/ML 3ML SQ SCH ×7 (07:24→21:00)
[2020-09-19] MEDS: POTASSIUM CHLORIDE 10% ELIXIR 20 MEQ/15 ML UDCUP PO PRN ×2 (07:57→09:25)
[2020-09-19] MEDS: DOCUSATE SODIUM 100 MG CAP PO SCH ×2 (07:57→21:43)
[2020-09-19] MEDS: PANTOPRAZOLE 40 MG TAB DR PO SCH (07:57)
[2020-09-19] MEDS: MAGNESIUM 2GM PREMIX 50ML 50 ML IV PRN (07:58)
[2020-09-19] MEDS: ONDANSETRON 4MG INJ IV PRN (10:07)
[2020-09-19] MEDS ORDERED: TRAMADOL /APAP 37.5MG/325MG TAB PO PRN (10:45)
[2020-09-19] MEDS ORDERED: 0.9% NACL 50ML 50 ML IV ONE (12:00)
[2020-09-19] MEDS: FLUCONAZOLE 200 MG/NS 100 ML 100 ML IV SCH (13:23)
[2020-09-19] MEDS: MORPHINE 4 MG SYG IV PRN (14:52)
[2020-09-19] MEDS: ZOLPIDEM TARTRATE 5 MG TAB PO PRN (21:43)
[2020-09-19] MEDS: INSULIN GLARGINE 100 UNITS/ML 10 ML VIAL SQ SCH (22:00)
[2020-09-20] VITALS (8 sets, daily range): BP systolic 117–133; BP diastolic 68–84
[2020-09-20] MEDS: MORPHINE 4 MG SYG IV PRN ×3 (01:03→20:36)
[2020-09-20] MEDS: NACL 0.9% 1000ML 1,000 ML IV SCH ×3 (02:58→23:18)
[2020-09-20 03:34] LABS: HEMATOCRIT 28.5 % (36-48); MEAN CORPUSCULAR HEMOGLOBIN 28.5 pg (27.0-33.0); MEAN CORPUSCULAR HGB CONC 31.6 g/dL (32.0-36.0); MEAN CORPUSCULAR VOLUME 90.2 fL (79-99); RED BLOOD CELL COUNT(AUTO) 3.16 MIL/uL (4.00-5.50); RED CELL DISTRIBUTION WIDTH 14.1 % (11.0-15.5); WHITE BLOOD COUNT (AUTO) 11.7 K/uL (4.8-10.8)
[2020-09-20 03:46] LABS: INR 1.12 (0.85-1.15); PROTHROMBIN TIME 12.1 SEC (9.6-11.6)
[2020-09-20 03:47] LABS: PARTIAL THROMBOPLASTIN TIME 27.6 SEC (26.3-35.5)
[2020-09-20 03:50] LABS: ALBUMIN 1.4 g/dL (3.5-5.0); BILIRUBIN,TOTAL 1.6 mg/dL (0.2-1.0); CREATININE 0.8 mg/dL (0.5-1.5); MAGNESIUM 1.8 mg/dL (1.80-2.40); POTASSIUM 3.6 mmol/L (3.5-5.1)
[2020-09-20] MEDS: INSULIN HUMULIN R 100 UNIT/ML 3ML SQ SCH ×7 (06:07→21:59)
[2020-09-20] MEDS: ENOXAPARIN SODIUM 40 MG/0.4 ML SYRINGE SQ SCH (07:59)
[2020-09-20] MEDS: DOCUSATE SODIUM 100 MG CAP PO SCH ×2 (07:59→20:36)
[2020-09-20] MEDS: POTASSIUM CHLORIDE 10% ELIXIR 20 MEQ/15 ML UDCUP PO PRN (08:01)
[2020-09-20] MEDS: PANTOPRAZOLE 40 MG TAB DR PO SCH (08:01)
[2020-09-20] MEDS: MAGNESIUM 2GM PREMIX 50ML 50 ML IV PRN (08:02)
[2020-09-20] MEDS: KCL 20 MEQ ERTAB PO PRN ×2 (08:10→17:06)
[2020-09-20] MEDS ORDERED: IOHEXOL 350 MG/ML 100ML INFUS..BTL IV ONE (10:42)
[2020-09-20] MEDS ORDERED: MIDAZOLAM HCL 1 MG/ML 2ML VIAL ONE (11:55)
[2020-09-20] MEDS ORDERED: FENTANYL CITRATE PF 50 MCG/1 ML 2ML VIAL ONE (11:55)
[2020-09-20] MEDS: FLUCONAZOLE 200 MG/NS 100 ML 100 ML IV SCH (13:59)
[2020-09-20] MEDS: INSULIN GLARGINE 100 UNITS/ML 10 ML VIAL SQ SCH (21:59)
[2020-09-20] MEDS: ZOLPIDEM TARTRATE 5 MG TAB PO PRN (23:45)
[2020-09-21] VITALS (7 sets, daily range): BP systolic 111–127; BP diastolic 63–77
[2020-09-21] MEDS: MORPHINE 4 MG SYG IV PRN ×2 (02:31→08:40)
[2020-09-21] MEDS: NACL 0.9% 1000ML 1,000 ML IV SCH ×3 (02:45→16:05)
[2020-09-21 04:15] LABS: BASOPHILS % (AUTO) 0.5 % (0.0-5.0); EOSINOPHILS % (AUTO) 1.8 % (0.0-8.0); HEMATOCRIT 26.8 % (36-48); LYMPHOCYTES % (AUTO) 13.3 % (21.0-51.0); MEAN CORPUSCULAR HEMOGLOBIN 29.3 pg (27.0-33.0); MEAN CORPUSCULAR HGB CONC 31.7 g/dL (32.0-36.0); MEAN CORPUSCULAR VOLUME 92.4 fL (79-99); MONOCYTES % (AUTO) 6.8 % (3.0-13.0); NEUTROPHILS % (AUTO) 76.9 % (40.0-77.0); WHITE BLOOD COUNT (AUTO) 11.8 K/uL (4.8-10.8)
[2020-09-21 04:21] LABS: PLATELET COUNT (AUTO) 702 K/uL (130-400)
[2020-09-21 04:30] LABS: ALBUMIN 1.3 g/dL (3.5-5.0); BILIRUBIN,TOTAL 1.2 mg/dL (0.2-1.0); CREATININE 0.8 mg/dL (0.5-1.5); POTASSIUM 3.9 mmol/L (3.5-5.1); TOTAL PROTEIN, SERUM 5.8 g/dL (6.0-8.3)
[2020-09-21] MEDS: INSULIN HUMULIN R 100 UNIT/ML 3ML SQ SCH ×7 (07:30→21:00)
[2020-09-21] MEDS: PANTOPRAZOLE 40 MG TAB DR PO SCH (08:40)
[2020-09-21] MEDS: DOCUSATE SODIUM 100 MG CAP PO SCH ×2 (08:40→21:19)
[2020-09-21] MEDS: ENOXAPARIN SODIUM 40 MG/0.4 ML SYRINGE SQ SCH (08:41)
[2020-09-21] MEDS ORDERED: CELECOXIB 200 MG CAP PO PRN (16:00)
[2020-09-21] MEDS: FLUCONAZOLE 200 MG/NS 100 ML 100 ML IV SCH (21:19)
[2020-09-21] MEDS: INSULIN GLARGINE 100 UNITS/ML 10 ML VIAL SQ SCH (21:26)
[2020-09-21] MEDS: TRAMADOL /APAP 37.5MG/325MG TAB PO PRN (23:08)
[2020-09-21] MEDS: ZOLPIDEM TARTRATE 5 MG TAB PO PRN (23:09)
[2020-09-22] MEDS: NACL 0.9% 1000ML 1,000 ML IV SCH (02:45)
[2020-09-22 03:47] VITALS: BP 128/71
[2020-09-22 04:49] LABS: BASOPHILS % (AUTO) 0.8 % (0.0-5.0); EOSINOPHILS % (AUTO) 3.5 % (0.0-8.0); HEMATOCRIT 25.6 % (36-48); LYMPHOCYTES % (AUTO) 19.3 % (21.0-51.0); MEAN CORPUSCULAR HEMOGLOBIN 28.4 pg (27.0-33.0); MEAN CORPUSCULAR HGB CONC 31.3 g/dL (32.0-36.0); MEAN CORPUSCULAR VOLUME 90.8 fL (79-99); MONOCYTES % (AUTO) 6.4 % (3.0-13.0); NEUTROPHILS % (AUTO) 69.3 % (40.0-77.0); PLATELET COUNT (AUTO) 661 K/uL (130-400); RED BLOOD CELL COUNT(AUTO) 2.82 MIL/uL (4.00-5.50); RED CELL DISTRIBUTION WIDTH 13.9 % (11.0-15.5); WHITE BLOOD COUNT (AUTO) 8.5 K/uL (4.8-10.8)
[2020-09-22 05:06] LABS: ALBUMIN 1.4 g/dL (3.5-5.0); CREATININE 0.9 mg/dL (0.5-1.5); MAGNESIUM 1.5 mg/dL (1.80-2.40); PHOSPHORUS 3.1 mg/dL (2.5-4.9); POTASSIUM 3.3 mmol/L (3.5-5.1)
[2020-09-22] MEDS: INSULIN HUMULIN R 100 UNIT/ML 3ML SQ SCH ×7 (05:31→20:36)
[2020-09-22] MEDS: MAGNESIUM 2GM PREMIX 50ML 50 ML IV PRN (06:38)
[2020-09-22] MEDS: KCL 20 MEQ ERTAB PO PRN ×3 (06:38→11:55)
[2020-09-22] MEDS: PANTOPRAZOLE 40 MG TAB DR PO SCH (06:38)
[2020-09-22 07:41] VITALS: BP 117/77
[2020-09-22] MEDS ORDERED: MAGNESIUM 2GM PREMIX 50ML 50 ML IV PRN (07:45)
[2020-09-22] MEDS: ENOXAPARIN SODIUM 40 MG/0.4 ML SYRINGE SQ SCH (09:02)
[2020-09-22] MEDS: DOCUSATE SODIUM 100 MG CAP PO SCH ×2 (09:02→20:29)
[2020-09-22 11:45] VITALS: BP 116/73
[2020-09-22 15:55] VITALS: BP 134/74
[2020-09-22] MEDS: TRAMADOL /APAP 37.5MG/325MG TAB PO PRN ×2 (18:08→22:57)
[2020-09-22 20:00] VITALS: BP 125/81
[2020-09-22] MEDS: INSULIN GLARGINE 100 UNITS/ML 10 ML VIAL SQ SCH (20:37)
[2020-09-22] MEDS: FLUCONAZOLE 200 MG/NS 100 ML 100 ML IV SCH (20:56)
[2020-09-22] MEDS: ZOLPIDEM TARTRATE 5 MG TAB PO PRN (22:57)
[2020-09-23] VITALS: BP 124/75
[2020-09-23 04:00] VITALS: BP 112/70
[2020-09-23 05:10] LABS: BASOPHILS % (AUTO) 0.7 % (0.0-5.0); EOSINOPHILS % (AUTO) 4.6 % (0.0-8.0); HEMATOCRIT 26.1 % (36-48); LYMPHOCYTES % (AUTO) 21.9 % (21.0-51.0); MEAN CORPUSCULAR HEMOGLOBIN 28.7 pg (27.0-33.0); MEAN CORPUSCULAR HGB CONC 30.7 g/dL (32.0-36.0); MEAN CORPUSCULAR VOLUME 93.5 fL (79-99); MONOCYTES % (AUTO) 6.7 % (3.0-13.0); NEUTROPHILS % (AUTO) 65.4 % (40.0-77.0); PLATELET COUNT (AUTO) 665 K/uL (130-400); RED BLOOD CELL COUNT(AUTO) 2.79 MIL/uL (4.00-5.50); WHITE BLOOD COUNT (AUTO) 8.4 K/uL (4.8-10.8)
[2020-09-23 05:32] LABS: ALBUMIN 1.5 g/dL (3.5-5.0); CREATININE 0.8 mg/dL (0.5-1.5); MAGNESIUM 1.6 mg/dL (1.80-2.40); POTASSIUM 4.4 mmol/L (3.5-5.1); TOTAL PROTEIN, SERUM 6.4 g/dL (6.0-8.3)
[2020-09-23] MEDS: INSULIN HUMULIN R 100 UNIT/ML 3ML SQ SCH ×7 (05:48→21:01)
[2020-09-23 08:09] VITALS: BP 106/95
[2020-09-23] MEDS: PANTOPRAZOLE 40 MG TAB DR PO SCH (09:12)
[2020-09-23] MEDS: DOCUSATE SODIUM 100 MG CAP PO SCH ×2 (09:12→20:53)
[2020-09-23] MEDS: ENOXAPARIN SODIUM 40 MG/0.4 ML SYRINGE SQ SCH (09:13)
[2020-09-23] MEDS: MAGNESIUM 2GM PREMIX 50ML 50 ML IV PRN (09:14)
[2020-09-23 12:04] VITALS: BP 133/80
[2020-09-23 16:01] VITALS: BP 119/73
[2020-09-23 20:00] VITALS: BP 122/74
[2020-09-23] MEDS: FLUCONAZOLE 200 MG/NS 100 ML 100 ML IV SCH (20:53)
[2020-09-23] MEDS: INSULIN GLARGINE 100 UNITS/ML 10 ML VIAL SQ SCH (20:59)
[2020-09-23] MEDS ORDERED: INSULIN GLARGINE 100 UNITS/ML 10 ML VIAL SQ SCH (21:00)
[2020-09-23] MEDS: TRAMADOL /APAP 37.5MG/325MG TAB PO PRN (22:07)
[2020-09-24] VITALS: BP 122/79
[2020-09-24 04:00] VITALS: BP 126/75
[2020-09-24 05:59] LABS: HEMATOCRIT 25.4 % (36-48); MEAN CORPUSCULAR HEMOGLOBIN 28.8 pg (27.0-33.0); MEAN CORPUSCULAR HGB CONC 31.9 g/dL (32.0-36.0); MEAN CORPUSCULAR VOLUME 90.4 fL (79-99); PLATELET COUNT (AUTO) 584 K/uL (130-400); RED BLOOD CELL COUNT(AUTO) 2.81 MIL/uL (4.00-5.50); RED CELL DISTRIBUTION WIDTH 13.8 % (11.0-15.5); WHITE BLOOD COUNT (AUTO) 7.9 K/uL (4.8-10.8)
[2020-09-24 06:09] LABS: BASOPHILS % (MANUAL) 2 % (0-2); EOSINOPHILS % (MANUAL) 8 % (1-6); LYMPHOCYTES % (MANUAL) 27 % (22-44); MAN.DIFF COMMENT-IMPRESSION MANUAL DIFFERENTIAL; MONOCYTES % (MANUAL) 1 % (2-9); SEGMENTED NEUTROPHILS % 62 % (40-70)
[2020-09-24 06:10] LABS: PLATELET MORPHOLOGY COMMENT INCREASED
[2020-09-24 06:11] LABS: ALBUMIN 1.6 g/dL (3.5-5.0); BILIRUBIN,TOTAL 0.9 mg/dL (0.2-1.0); CREATININE 0.9 mg/dL (0.5-1.5); POTASSIUM 3.4 mmol/L (3.5-5.1); TOTAL PROTEIN, SERUM 6.5 g/dL (6.0-8.3)
[2020-09-24] MEDS: PANTOPRAZOLE 40 MG TAB DR PO SCH (06:17)
[2020-09-24] MEDS: INSULIN HUMULIN R 100 UNIT/ML 3ML SQ SCH ×7 (06:34→21:00)
[2020-09-24 08:00] VITALS: BP 117/82
[2020-09-24] MEDS: DOCUSATE SODIUM 100 MG CAP PO SCH ×2 (08:06→21:12)
[2020-09-24] MEDS: ENOXAPARIN SODIUM 40 MG/0.4 ML SYRINGE SQ SCH (08:06)
[2020-09-24 12:00] VITALS: BP 125/77
[2020-09-24] MEDS: TRAMADOL /APAP 37.5MG/325MG TAB PO PRN ×2 (14:17→22:33)
[2020-09-24 16:00] VITALS: BP 142/71
[2020-09-24 20:00] VITALS: BP 127/82
[2020-09-24] MEDS: FLUCONAZOLE 200 MG/NS 100 ML 100 ML IV SCH (21:12)
[2020-09-24] MEDS: INSULIN GLARGINE 100 UNITS/ML 10 ML VIAL SQ SCH (21:15)
[2020-09-24] MEDS: ZOLPIDEM TARTRATE 5 MG TAB PO PRN (22:32)
[2020-09-25] VITALS: BP 124/75
[2020-09-25 04:00] VITALS: BP 131/87
[2020-09-25 05:12] LABS: BASOPHILS % (AUTO) 0.7 % (0.0-5.0); EOSINOPHILS % (AUTO) 6.5 % (0.0-8.0); HEMATOCRIT 25.8 % (36-48); LYMPHOCYTES % (AUTO) 25.5 % (21.0-51.0); MEAN CORPUSCULAR HEMOGLOBIN 28.1 pg (27.0-33.0); MEAN CORPUSCULAR HGB CONC 31.4 g/dL (32.0-36.0); MEAN CORPUSCULAR VOLUME 89.6 fL (79-99); MONOCYTES % (AUTO) 6.9 % (3.0-13.0); PLATELET COUNT (AUTO) 584 K/uL (130-400); RED BLOOD CELL COUNT(AUTO) 2.88 MIL/uL (4.00-5.50); RED CELL DISTRIBUTION WIDTH 13.9 % (11.0-15.5); WHITE BLOOD COUNT (AUTO) 7.4 K/uL (4.8-10.8)
[2020-09-25 05:27] LABS: ALBUMIN 1.7 g/dL (3.5-5.0); BILIRUBIN,TOTAL 0.9 mg/dL (0.2-1.0); CREATININE 0.9 mg/dL (0.5-1.5); POTASSIUM 3.6 mmol/L (3.5-5.1)
[2020-09-25] MEDS: INSULIN HUMULIN R 100 UNIT/ML 3ML SQ SCH ×7 (05:39→21:00)
[2020-09-25] MEDS: PANTOPRAZOLE 40 MG TAB DR PO SCH (06:33)
[2020-09-25 08:34] VITALS: BP 127/78
[2020-09-25] MEDS: DOCUSATE SODIUM 100 MG CAP PO SCH ×2 (09:34→21:58)
[2020-09-25] MEDS: ENOXAPARIN SODIUM 40 MG/0.4 ML SYRINGE SQ SCH (09:34)
[2020-09-25 12:36] VITALS: BP 126/80
[2020-09-25 15:57] VITALS: BP 119/68
[2020-09-25] MEDS: TRAMADOL /APAP 37.5MG/325MG TAB PO PRN (16:49)
[2020-09-25] MEDS: KCL 20 MEQ ERTAB PO PRN ×2 (19:02→22:23)
[2020-09-25 20:00] VITALS: BP 123/79
[2020-09-25] MEDS: FLUCONAZOLE 200 MG/NS 100 ML 100 ML IV SCH (21:58)
[2020-09-25] MEDS: INSULIN GLARGINE 100 UNITS/ML 10 ML VIAL SQ SCH (21:59)
[2020-09-25] MEDS: ZOLPIDEM TARTRATE 5 MG TAB PO PRN (22:27)
[2020-09-26] VITALS: BP 125/76
[2020-09-26 04:00] VITALS: BP 114/69
[2020-09-26 04:11] LABS: BASOPHILS % (AUTO) 0.8 % (0.0-5.0); EOSINOPHILS % (AUTO) 6.9 % (0.0-8.0); HEMATOCRIT 25.9 % (36-48); LYMPHOCYTES % (AUTO) 29.4 % (21.0-51.0); MEAN CORPUSCULAR HEMOGLOBIN 28.4 pg (27.0-33.0); MEAN CORPUSCULAR HGB CONC 31.7 g/dL (32.0-36.0); MEAN CORPUSCULAR VOLUME 89.6 fL (79-99); NEUTROPHILS % (AUTO) 55.6 % (40.0-77.0); PLATELET COUNT (AUTO) 525 K/uL (130-400); RED BLOOD CELL COUNT(AUTO) 2.89 MIL/uL (4.00-5.50); RED CELL DISTRIBUTION WIDTH 13.9 % (11.0-15.5); WHITE BLOOD COUNT (AUTO) 6.1 K/uL (4.8-10.8)
[2020-09-26 04:22] LABS: CREATININE 0.9 mg/dL (0.5-1.5); POTASSIUM 3.9 mmol/L (3.5-5.1)
[2020-09-26] MEDS: PANTOPRAZOLE 40 MG TAB DR PO SCH (05:30)
[2020-09-26] MEDS: INSULIN HUMULIN R 100 UNIT/ML 3ML SQ SCH ×6 (05:30→16:03)
[2020-09-26] MEDS ORDERED: INSULIN HUMULIN R 100 UNIT/ML 3ML SQ SCH (06:00)
[2020-09-26 07:00] VITALS: BP 109/76
[2020-09-26] MEDS: DOCUSATE SODIUM 100 MG CAP PO SCH (08:37)
[2020-09-26] MEDS: ENOXAPARIN SODIUM 40 MG/0.4 ML SYRINGE SQ SCH (08:37)
[2020-09-26 11:00] VITALS: BP 129/80
[2020-09-26] MEDS ORDERED: IOHEXOL-350 75 ML VIAL IV ONE (14:00)
[2020-09-26 15:00] VITALS: BP 127/82
[2020-09-26] MEDS: TRAMADOL /APAP 37.5MG/325MG TAB PO PRN (15:55)
[2020-09-26] MEDS ORDERED: BLOO-140 MC (16:13)
[2020-09-26] MEDS ORDERED: HUM10VIA SQ ×2 (16:13)
[2020-09-26] MEDS ORDERED: SYRI-1628 MC (16:13)
[2020-09-26] MEDS ORDERED: IBUP-2070 PO (16:14)
[2020-09-26 19:10] VITALS: BP 123/77
== END 2020-09-26 20:55 | disposition home or self-care (01) | DRG 853 ==
LOC: EDH 15:00 → EDHIP 15:01 → 3CH 20:16 → 2DH 09-07 10:10 → 3DH 09-13 01:17 → 2CH 09-18 15:18 → 2DH 09-20 15:40 → 4DH 09-22 18:14
PROVIDERS: ADMIT Family Medicine; ATTEND Family Medicine
PROC: 0FT44ZZ Resection of Gallbladder, Percutaneous Endoscopic Approach (ICD-10-PCS; principal; 2020-09-06 18:40)
PROC: 0D9W0ZZ Drainage of Peritoneum, Open Approach (ICD-10-PCS; 2020-09-08)
PROC: 30233N1 Transfusion of Nonautologous Red Blood Cells into Peripheral Vein, Percutaneous Approach (ICD-10-PCS; 2020-09-08)
PROC: 0W9J30Z Drainage of Pelvic Cavity with Drainage Device, Percutaneous Approach (ICD-10-PCS; 2020-09-17)
PROC: 0FJB8ZZ Inspection of Hepatobiliary Duct, Via Natural or Artificial Opening Endoscopic (ICD-10-PCS; 2020-09-18)
DX: A41.9 Sepsis, unspecified organism (principal); K66.1 Hemoperitoneum; E11.10 Type 2 diabetes mellitus with ketoacidosis without coma; K80.01 Calculus of gallbladder with acute cholecystitis with obstruction; E87.1 Hypo-osmolality and hyponatremia; N17.9 Acute kidney failure, unspecified; D62 Acute posthemorrhagic anemia; L02.211 Cutaneous abscess of abdominal wall; N39.0 Urinary tract infection, site not specified; K91.840 Postprocedural hemorrhage of a digestive system organ or structure following a digestive system procedure; R65.20 Severe sepsis without septic shock; E66.9 Obesity, unspecified; K76.0 Fatty (change of) liver, not elsewhere classified; K82.8 Other specified diseases of gallbladder; R16.0 Hepatomegaly, not elsewhere classified; E78.5 Hyperlipidemia, unspecified; E83.42 Hypomagnesemia; E87.5 Hyperkalemia; Z20.822 Contact with and (suspected) exposure to COVID-19; K83.8 Other specified diseases of biliary tract; E87.6 Hypokalemia; E88.09 Other disorders of plasma-protein metabolism, not elsewhere classified; I10 Essential (primary) hypertension; Z79.4 Long term (current) use of insulin; Z68.38 Body mass index [BMI] 38.0-38.9, adult; Z91.19 Patient's noncompliance with other medical treatment and regimen; Y83.8 Other surgical procedures as the cause of abnormal reaction of the patient, or of later complication, without mention of misadventure at the time of the procedure
CPT/HCPCS: 10030; 36415; 36600; 43260; 74018; 74176; 74177; 74181; 74328; 74330; 76700; 76705; 76942; 77012; 78226; 80048; 80053; 80061; 80076; 81001; 81025; 82010; 82150; 82247; 82248; 82435; 82550; 82803; 82947; 82948; 83036; 83540; 83550; 83605; 83615; 83690; 83735; 83874; 84100; 84132; 84145; 84295; 84484; 85014; 85018; 85025; 85027; 85384; 85610; 85651; 85730; 86140; 86850; 86900; 86901; 86923; 87071; 87205; 87426; 87486; 87635; 87797; 89051; 93970; 99152; 99153; A4344; A4606; A9537; C1769; C9113; G0378; J0330; J0500; J1170; J1450; J1650; J1756; J1815; J1885; J2001; J2175; J2250; J2270; J2405; J2543; J2550; J2704; J2710; J3010; J3475; J3480; J3490; J7030; J7050; J7070; J7120; P9016; Q9963; Q9967

== ENCOUNTER 2020-09-30 12:10 | Emergency (ER) | payer OTHER ==
[~2020-09-30] VITALS: Ht 162.6 cm; Wt 88.5 kg
[~2020-09-30 12:10] MED LIST: BLOO-140 MC; HUM10VIA SQ; IBUP-2070 PO; SYRI-1628 MC
[2020-09-30 12:17] VITALS: BP 139/90
[2020-09-30 14:10] VITALS: BP 113/80
== END 2020-09-30 14:43 | disposition home or self-care (01) ==
LOC: EDH 12:10
DX: K91.89 Other postprocedural complications and disorders of digestive system (principal); Z90.49 Acquired absence of other specified parts of digestive tract; E11.9 Type 2 diabetes mellitus without complications
CPT/HCPCS: 99281

== ENCOUNTER 2020-10-09 18:23 | Inpatient (IN) | payer OTHER ==
[~2020-10-09] VITALS: Ht 165.1 cm; Wt 84.8 kg
[2020-10-09 18:58] VITALS: BP_SYST 121
[2020-10-09] MEDS ORDERED: 0.9%NACL 1000ML 1,779 ML IV ONE (19:00)
[2020-10-09] MEDS ORDERED: ACETAMINOPHEN 500 MG TABLET PO ONE (19:00)
[2020-10-09] MEDS ORDERED: ZOSYN 3.375GM+NS 50ML 50 ML IV ONE (19:00)
[2020-10-09 19:06] LABS: BASOPHILS % (AUTO) 0.2 % (0.0-5.0); EOSINOPHILS % (AUTO) 0.1 % (0.0-8.0); LYMPHOCYTES % (AUTO) 4.8 % (21.0-51.0); MEAN CORPUSCULAR HEMOGLOBIN 28.7 pg (27.0-33.0); MEAN CORPUSCULAR HGB CONC 32.4 g/dL (32.0-36.0); MEAN CORPUSCULAR VOLUME 88.6 fL (79-99); NEUTROPHILS % (AUTO) 89.4 % (40.0-77.0); PLATELET COUNT (AUTO) 495 K/uL (130-400); RED BLOOD CELL COUNT(AUTO) 4.29 MIL/uL (4.00-5.50); RED CELL DISTRIBUTION WIDTH 15.3 % (11.0-15.5); WHITE BLOOD COUNT (AUTO) 17.7 K/uL (4.8-10.8)
[2020-10-09 19:19] LABS: POTASSIUM 3.7 mmol/L (3.5-5.1)
[2020-10-09 19:26] LABS: INR 1.09 (0.85-1.15); PROTHROMBIN TIME 11.8 SEC (9.6-11.6)
[2020-10-09 19:27] LABS: PARTIAL THROMBOPLASTIN TIME 26.6 SEC (26.3-35.5)
[2020-10-09 19:29] LABS: BILIRUBIN,TOTAL 1.3 mg/dL (0.2-1.0); TOTAL PROTEIN, SERUM 8.6 g/dL (6.0-8.3)
[2020-10-09] MEDS ORDERED: 0.9%NACL 50ML 50 ML IV ONE (19:38)
[2020-10-09] MEDS ORDERED: ONDANSETRON 4MG INJ IVP ONE (20:00)
[2020-10-09 20:10] VITALS: BP 120/80
[2020-10-09 21:15] LABS: APPEARANCE,URINE SL CLOUDY (CLEAR); BILIRUBIN,URINE NEGATIVE (NEGATIVE); COLOR,URINE YELLOW (YELLOW); GLUCOSE, URINE (UA) NEGATIVE (NEGATIVE); KETONES,URINE NEGATIVE (NEGATIVE); LEUKOCYTE ESTERASE ,URINE LARGE (NEGATIVE); NITRATE,URINE NEGATIVE (NEGATIVE); OCCULT BLOOD,URINE NEGATIVE (NEGATIVE); PROTEIN,URINE NEGATIVE (NEGATIVE); UROBILINOGEN,URINE 0.2 mg/dL (0.2-1.0)
[2020-10-09 21:25] LABS: BACTERIA,URINE Few /HPF (None Seen); RBC,URINE None Seen /HPF (0-1)
[2020-10-09 21:36] VITALS: BP 112/67
[2020-10-09] MEDS: 0.9%NACL 1000ML 1,000 ML IV SCH (22:30)
[2020-10-09] MEDS ORDERED: ONDANSETRON 4MG INJ IV PRN (22:30)
[2020-10-09 23:21] VITALS: BP 101/64
[2020-10-09 23:29] LABS: THYROID STIMULATING HORMONE 0.73 uIU/mL (0.36-3.74)
[2020-10-09 23:59] VITALS: BP 95/57
[2020-10-10] VITALS (7 sets, daily range): BP systolic 101–136; BP diastolic 57–76
[2020-10-10 00:13] LABS: INR 1.17 (0.85-1.15); PROTHROMBIN TIME 12.6 SEC (9.6-11.6)
[2020-10-10 00:14] LABS: PARTIAL THROMBOPLASTIN TIME 28.2 SEC (26.3-35.5)
[2020-10-10] MEDS: HYDROMORPHONE 1 MG INJ IV PRN ×2 (04:39→21:06)
[2020-10-10] MEDS ORDERED: 0.9%NACL 50ML 50 ML IV ONE (04:51)
[2020-10-10] MEDS: ZOSYN 3.375GM+NS 50ML 50 ML IV SCH ×3 (05:00→20:57)
[2020-10-10] MEDS: 0.9%NACL 1000ML 1,000 ML IV SCH ×4 (05:10→20:59)
[2020-10-10 08:19] LABS: BASOPHILS % (AUTO) 0.4 % (0.0-5.0); EOSINOPHILS % (AUTO) 0.3 % (0.0-8.0); HEMATOCRIT 34.6 % (36-48); LYMPHOCYTES % (AUTO) 7.4 % (21.0-51.0); MEAN CORPUSCULAR HEMOGLOBIN 28.7 pg (27.0-33.0); MEAN CORPUSCULAR HGB CONC 31.8 g/dL (32.0-36.0); MEAN CORPUSCULAR VOLUME 90.3 fL (79-99); MONOCYTES % (AUTO) 4.4 % (3.0-13.0); NEUTROPHILS % (AUTO) 86.9 % (40.0-77.0); PLATELET COUNT (AUTO) 374 K/uL (130-400); RED BLOOD CELL COUNT(AUTO) 3.83 MIL/uL (4.00-5.50); RED CELL DISTRIBUTION WIDTH 15.6 % (11.0-15.5); WHITE BLOOD COUNT (AUTO) 19.1 K/uL (4.8-10.8)
[2020-10-10 08:39] LABS: POTASSIUM 3.5 mmol/L (3.5-5.1)
[2020-10-10] MEDS ORDERED: HYDROMORPHONE 0.5 MG SYG (0.5MG/0.5ML) ONE (10:30)
[2020-10-10] MEDS: FAMOTIDINE 20MG VIAL IV SCH ×2 (11:04→20:57)
[2020-10-10] MEDS: INSULIN HUMULIN R 100 UNIT/ML 3ML SQ SCH ×3 (11:30→20:52)
[2020-10-10] MEDS ORDERED: INSU100I35 SQ ×2 (18:18)
[2020-10-10] MEDS ORDERED: INSULIN GLARGINE 100 UNITS/ML 10 ML VIAL SQ SCH (21:00)
[2020-10-11] VITALS (7 sets, daily range): BP systolic 97–114; BP diastolic 55–74
[2020-10-11] MEDS: 0.9%NACL 1000ML 1,000 ML IV SCH ×4 (02:19→20:59)
[2020-10-11] MEDS: ZOSYN 3.375GM+NS 50ML 50 ML IV SCH (04:50)
[2020-10-11] MEDS: HYDROMORPHONE 1 MG INJ IV PRN (04:55)
[2020-10-11 05:44] LABS: BASOPHILS % (AUTO) 0.3 % (0.0-5.0); HEMATOCRIT 29.5 % (36-48); MEAN CORPUSCULAR HEMOGLOBIN 28.2 pg (27.0-33.0); MEAN CORPUSCULAR HGB CONC 31.2 g/dL (32.0-36.0); MEAN CORPUSCULAR VOLUME 90.5 fL (79-99); MONOCYTES % (AUTO) 5.2 % (3.0-13.0); NEUTROPHILS % (AUTO) 80.7 % (40.0-77.0); PLATELET COUNT (AUTO) 336 K/uL (130-400); RED BLOOD CELL COUNT(AUTO) 3.26 MIL/uL (4.00-5.50); RED CELL DISTRIBUTION WIDTH 15.4 % (11.0-15.5); WHITE BLOOD COUNT (AUTO) 14.4 K/uL (4.8-10.8)
[2020-10-11 06:06] LABS: BILIRUBIN,TOTAL 1.2 mg/dL (0.2-1.0); CREATININE 0.9 mg/dL (0.5-1.5); TOTAL PROTEIN, SERUM 6.8 g/dL (6.0-8.3)
[2020-10-11] MEDS: INSULIN HUMULIN R 100 UNIT/ML 3ML SQ SCH ×7 (06:12→20:58)
[2020-10-11] MEDS: FAMOTIDINE 20MG VIAL IV SCH ×2 (08:39→20:48)
[2020-10-11] MEDS: INSULIN GLARGINE 100 UNITS/ML 10 ML VIAL SQ SCH ×2 (08:41→20:58)
[2020-10-11] MEDS ORDERED: POTASSIUM CHLORIDE 10% ELIXIR 20 MEQ/15 ML UDCUP PO PRN (09:00)
[2020-10-11] MEDS: ACETAMINOPHEN WITH CODEINE 1 TAB TAB PO PRN ×2 (11:37→23:55)
[2020-10-11] MEDS: SULFAMETHOX-TMP DS 800/160 TAB PO SCH ×2 (11:37→20:46)
[2020-10-11] MEDS: POTASSIUM CHLORIDE 20MEQ/100ML 100 ML IV PRN ×2 (11:42→20:46)
[2020-10-11] MEDS: KCL 20 MEQ ERTAB PO PRN ×3 (11:44→22:46)
[2020-10-12] MEDS: KCL 20 MEQ ERTAB PO PRN ×4 (01:11→11:28)
[2020-10-12] MEDS ORDERED: LACTATED RINGERS 1000ML 1,000 ML IV ONE (02:24)
[2020-10-12 03:40] VITALS: BP 99/63
[2020-10-12 05:33] LABS: BASOPHILS % (AUTO) 0.4 % (0.0-5.0); EOSINOPHILS % (AUTO) 3.8 % (0.0-8.0); HEMATOCRIT 28.3 % (36-48); LYMPHOCYTES % (AUTO) 22.1 % (21.0-51.0); MEAN CORPUSCULAR HEMOGLOBIN 28.9 pg (27.0-33.0); MEAN CORPUSCULAR HGB CONC 31.4 g/dL (32.0-36.0); MEAN CORPUSCULAR VOLUME 91.9 fL (79-99); MONOCYTES % (AUTO) 5.9 % (3.0-13.0); NEUTROPHILS % (AUTO) 67.4 % (40.0-77.0); PLATELET COUNT (AUTO) 347 K/uL (130-400); RED BLOOD CELL COUNT(AUTO) 3.08 MIL/uL (4.00-5.50); RED CELL DISTRIBUTION WIDTH 15.3 % (11.0-15.5); WHITE BLOOD COUNT (AUTO) 7.4 K/uL (4.8-10.8)
[2020-10-12] MEDS: INSULIN HUMULIN R 100 UNIT/ML 3ML SQ SCH ×7 (05:53→19:57)
[2020-10-12 06:00] LABS: CREATININE 0.9 mg/dL (0.5-1.5); MAGNESIUM 1.7 mg/dL (1.80-2.40); POTASSIUM 3.3 mmol/L (3.5-5.1)
[2020-10-12 07:54] VITALS: BP 109/68
[2020-10-12] MEDS: FAMOTIDINE 20MG VIAL IV SCH (08:42)
[2020-10-12] MEDS: SULFAMETHOX-TMP DS 800/160 TAB PO SCH ×2 (08:42→19:25)
[2020-10-12] MEDS: INSULIN GLARGINE 100 UNITS/ML 10 ML VIAL SQ SCH ×2 (08:47→19:59)
[2020-10-12] MEDS ORDERED: MAGNESIUM 2GM PREMIX 50ML 50 ML IV SCH (09:30)
[2020-10-12] MEDS: HYDROMORPHONE 1 MG INJ IV PRN (10:54)
[2020-10-12 11:27] VITALS: BP 116/68
[2020-10-12] MEDS ORDERED: PANTOPRAZOLE 40 MG TAB DR PO SCH (11:30)
[2020-10-12 15:24] VITALS: BP 103/63
[2020-10-12] MEDS: HYDROMORPHONE 0.5 MG SYG (0.5MG/0.5ML) IVP PRN ×2 (17:02→23:48)
[2020-10-12 19:55] VITALS: BP 120/62
[2020-10-13] VITALS (7 sets, daily range): BP systolic 50–121; BP diastolic 24–76
[2020-10-13] MEDS: INSULIN HUMULIN R 100 UNIT/ML 3ML SQ SCH ×7 (05:59→20:44)
[2020-10-13 06:09] LABS: BASOPHILS % (AUTO) 0.4 % (0.0-5.0); EOSINOPHILS % (AUTO) 2.9 % (0.0-8.0); HEMATOCRIT 29.9 % (36-48); LYMPHOCYTES % (AUTO) 23.2 % (21.0-51.0); MEAN CORPUSCULAR HEMOGLOBIN 28.5 pg (27.0-33.0); MEAN CORPUSCULAR HGB CONC 31.1 g/dL (32.0-36.0); MEAN CORPUSCULAR VOLUME 91.7 fL (79-99); MONOCYTES % (AUTO) 5.9 % (3.0-13.0); NEUTROPHILS % (AUTO) 67.1 % (40.0-77.0); PLATELET COUNT (AUTO) 373 K/uL (130-400); RED BLOOD CELL COUNT(AUTO) 3.26 MIL/uL (4.00-5.50); RED CELL DISTRIBUTION WIDTH 14.8 % (11.0-15.5); WHITE BLOOD COUNT (AUTO) 8.3 K/uL (4.8-10.8)
[2020-10-13 06:27] LABS: ALBUMIN 2.2 g/dL (3.5-5.0); BILIRUBIN,TOTAL 0.7 mg/dL (0.2-1.0); CREATININE 1.1 mg/dL (0.5-1.5); MAGNESIUM 1.6 mg/dL (1.80-2.40); POTASSIUM 4.1 mmol/L (3.5-5.1); TOTAL PROTEIN, SERUM 7.5 g/dL (6.0-8.3)
[2020-10-13] MEDS: HYDROMORPHONE 0.5 MG SYG (0.5MG/0.5ML) IVP PRN ×3 (07:39→23:42)
[2020-10-13] MEDS: INSULIN GLARGINE 100 UNITS/ML 10 ML VIAL SQ SCH ×2 (07:50→20:42)
[2020-10-13] MEDS: PANTOPRAZOLE 40 MG TAB DR PO SCH (08:30)
[2020-10-13] MEDS: SULFAMETHOX-TMP DS 800/160 TAB PO SCH ×2 (08:30→19:49)
[2020-10-13] MEDS: 0.9%NACL 1000ML 1,000 ML IV SCH ×2 (10:52→23:28)
[2020-10-13] MEDS: ACETAMINOPHEN WITH CODEINE 1 TAB TAB PO PRN (20:43)
[2020-10-14 00:16] VITALS: BP 111/60
[2020-10-14 04:26] VITALS: BP 111/75
[2020-10-14] MEDS: INSULIN HUMULIN R 100 UNIT/ML 3ML SQ SCH ×7 (05:56→21:00)
[2020-10-14 06:07] LABS: BASOPHILS % (AUTO) 0.4 % (0.0-5.0); HEMATOCRIT 30.9 % (36-48); LYMPHOCYTES % (AUTO) 21.7 % (21.0-51.0); MEAN CORPUSCULAR HEMOGLOBIN 28.4 pg (27.0-33.0); MEAN CORPUSCULAR HGB CONC 31.1 g/dL (32.0-36.0); MEAN CORPUSCULAR VOLUME 91.4 fL (79-99); MONOCYTES % (AUTO) 8.9 % (3.0-13.0); NEUTROPHILS % (AUTO) 64.5 % (40.0-77.0); PLATELET COUNT (AUTO) 386 K/uL (130-400); RED BLOOD CELL COUNT(AUTO) 3.38 MIL/uL (4.00-5.50); RED CELL DISTRIBUTION WIDTH 14.7 % (11.0-15.5); WHITE BLOOD COUNT (AUTO) 8.5 K/uL (4.8-10.8)
[2020-10-14 06:25] LABS: ALBUMIN 2.3 g/dL (3.5-5.0); BILIRUBIN,TOTAL 0.6 mg/dL (0.2-1.0); MAGNESIUM 1.8 mg/dL (1.80-2.40); POTASSIUM 3.7 mmol/L (3.5-5.1); TOTAL PROTEIN, SERUM 7.7 g/dL (6.0-8.3)
[2020-10-14 08:00] VITALS: BP 107/71
[2020-10-14] MEDS: PANTOPRAZOLE 40 MG TAB DR PO SCH (09:03)
[2020-10-14] MEDS: SULFAMETHOX-TMP DS 800/160 TAB PO SCH ×2 (09:04→19:51)
[2020-10-14] MEDS: INSULIN GLARGINE 100 UNITS/ML 10 ML VIAL SQ SCH ×2 (09:05→19:51)
[2020-10-14] MEDS: HYDROMORPHONE 0.5 MG SYG (0.5MG/0.5ML) IVP PRN ×2 (09:07→16:09)
[2020-10-14] MEDS: KCL 20 MEQ ERTAB PO PRN ×2 (09:07→12:56)
[2020-10-14 12:00] VITALS: BP_SYST 110; BP_SYST 112; BP_SYST 99; BP_DIAS 69; BP_DIAS 71
[2020-10-14] MEDS: 0.9%NACL 1000ML 1,000 ML IV SCH ×2 (13:40→18:14)
[2020-10-14 16:00] VITALS: BP 119/81
[2020-10-14] MEDS ORDERED: LACTATED RINGERS 1000ML 1,000 ML IV ONE (18:11)
[2020-10-14] MEDS: ACETAMINOPHEN WITH CODEINE 1 TAB TAB PO PRN (19:43)
[2020-10-14 20:00] VITALS: BP 116/81
[2020-10-15] VITALS (8 sets, daily range): BP systolic 96–121; BP diastolic 63–75
[2020-10-15] MEDS: HYDROMORPHONE 0.5 MG SYG (0.5MG/0.5ML) IVP PRN (01:42)
[2020-10-15 06:04] LABS: BASOPHILS % (AUTO) 0.6 % (0.0-5.0); EOSINOPHILS % (AUTO) 3.5 % (0.0-8.0); HEMATOCRIT 29.7 % (36-48); LYMPHOCYTES % (AUTO) 26.4 % (21.0-51.0); MEAN CORPUSCULAR HEMOGLOBIN 28.2 pg (27.0-33.0); MEAN CORPUSCULAR HGB CONC 30.6 g/dL (32.0-36.0); MONOCYTES % (AUTO) 7.9 % (3.0-13.0); NEUTROPHILS % (AUTO) 60.9 % (40.0-77.0); PLATELET COUNT (AUTO) 360 K/uL (130-400); RED BLOOD CELL COUNT(AUTO) 3.23 MIL/uL (4.00-5.50); RED CELL DISTRIBUTION WIDTH 14.6 % (11.0-15.5); WHITE BLOOD COUNT (AUTO) 8.2 K/uL (4.8-10.8)
[2020-10-15 06:11] LABS: MAGNESIUM 1.7 mg/dL (1.80-2.40); POTASSIUM 3.6 mmol/L (3.5-5.1)
[2020-10-15] MEDS: INSULIN HUMULIN R 100 UNIT/ML 3ML SQ SCH ×4 (06:46→13:07)
[2020-10-15] MEDS: PANTOPRAZOLE 40 MG TAB DR PO SCH (06:48)
[2020-10-15] MEDS: SULFAMETHOX-TMP DS 800/160 TAB PO SCH (08:04)
[2020-10-15] MEDS: INSULIN GLARGINE 100 UNITS/ML 10 ML VIAL SQ SCH (08:11)
[2020-10-15] MEDS: ACETAMINOPHEN WITH CODEINE 1 TAB TAB PO PRN (11:10)
[2020-10-15] MEDS ORDERED: PANT40TA PO (13:46)
[2020-10-15] MEDS ORDERED: LEVO500T89 PO (13:46)
[2020-10-15] MEDS ORDERED: Sulfamethox-Tmp Ds 800/160 Tab PO (13:46)
[2020-10-15] MEDS ORDERED: ACET1TAB25 PO (13:51)
== END 2020-10-15 17:14 | disposition home or self-care (01) | DRG 872 ==
LOC: EDH 18:23 → EDHIP 18:24 → 4BH 10-10 09:00
PROVIDERS: ADMIT Internal Medicine; ATTEND Internal Medicine
DX: A41.9 Sepsis, unspecified organism (principal); N39.0 Urinary tract infection, site not specified; I95.1 Orthostatic hypotension; E78.5 Hyperlipidemia, unspecified; E66.9 Obesity, unspecified; I10 Essential (primary) hypertension; E11.9 Type 2 diabetes mellitus without complications; B95.7 Other staphylococcus as the cause of diseases classified elsewhere; B96.20 Unspecified Escherichia coli [E. coli] as the cause of diseases classified elsewhere; E86.0 Dehydration; Z20.822 Contact with and (suspected) exposure to COVID-19; Z90.49 Acquired absence of other specified parts of digestive tract; Z79.4 Long term (current) use of insulin; Z79.899 Other long term (current) drug therapy; Z83.3 Family history of diabetes mellitus; Z68.31 Body mass index [BMI] 31.0-31.9, adult
CPT/HCPCS: 36415; 71045; 74176; 80048; 80053; 81001; 82550; 82948; 83605; 83690; 83735; 84132; 84145; 84443; 84484; 84702; 85025; 85610; 85730; 86850; 86900; 86901; 87040; 87070; 87076; 87077; 87088; 87186; 87635; 93005; 97039; C9803; G0378; J1170; J1815; J2405; J2543; J3475; J3480; J3490; J7030; J7120

== ENCOUNTER 2020-10-17 21:18 | Inpatient (IN) | payer OTHER ==
[~2020-10-17] VITALS: Ht 157.5 cm; Wt 85.0 kg
[~2020-10-17 21:18] MED LIST changes: +ACET1TAB25 PO; -BLOO-140 MC; -HUM10VIA SQ; -IBUP-2070 PO; +INSU100I35 SQ; +LEVO500T89 PO; +PANT40TA PO; -SYRI-1628 MC; +Sulfamethox-Tmp Ds 800/160 Tab PO
[2020-10-17 21:51] LABS: BASOPHILS % (AUTO) 0.4 % (0.0-5.0); EOSINOPHILS % (AUTO) 2.6 % (0.0-8.0); HEMATOCRIT 32.1 % (36-48); LYMPHOCYTES % (AUTO) 29.4 % (21.0-51.0); MEAN CORPUSCULAR HEMOGLOBIN 28.4 pg (27.0-33.0); MEAN CORPUSCULAR HGB CONC 32.1 g/dL (32.0-36.0); MEAN CORPUSCULAR VOLUME 88.4 fL (79-99); MONOCYTES % (AUTO) 7.2 % (3.0-13.0); PLATELET COUNT (AUTO) 523 K/uL (130-400); RED BLOOD CELL COUNT(AUTO) 3.63 MIL/uL (4.00-5.50); RED CELL DISTRIBUTION WIDTH 14.6 % (11.0-15.5); WHITE BLOOD COUNT (AUTO) 7.2 K/uL (4.8-10.8)
[2020-10-17 22:00] LABS: CREATININE 1.1 mg/dL (0.5-1.5); POTASSIUM 3.6 mmol/L (3.5-5.1)
[2020-10-17 22:04] LABS: ALBUMIN 2.6 g/dL (3.5-5.0); BILIRUBIN,TOTAL 0.4 mg/dL (0.2-1.0); CRP QUANTITATIVE 52.7 mg/L (0.00-9.0); TOTAL PROTEIN, SERUM 8.6 g/dL (6.0-8.3)
[2020-10-17 22:10] LABS: APPEARANCE,URINE Clear (CLEAR); BILIRUBIN,URINE Negative (NEGATIVE); COLOR,URINE Yellow (YELLOW); GLUCOSE, URINE (UA) Negative (NEGATIVE); KETONES,URINE Negative (NEGATIVE); LEUKOCYTE ESTERASE ,URINE Negative (NEGATIVE); NITRATE,URINE Negative (NEGATIVE); OCCULT BLOOD,URINE Negative (NEGATIVE); PH,URINE 5.5 (5.0-8.0); PROTEIN,URINE Negative (NEGATIVE); UROBILINOGEN,URINE 0.2 mg/dL (0.2-1.0)
[2020-10-17 22:11] LABS: HCG,QUAL RESULT NEGATIVE (NEGATIVE)
[2020-10-17 22:13] VITALS: BP 145/100
[2020-10-17 23:53] VITALS: BP 132/63
[2020-10-18] MEDS ORDERED: DEXTROSE 50%-WATER 50 ML DISP.SYRIN IV PRN (01:00)
[2020-10-18] MEDS ORDERED: ONDANSETRON 4MG INJ IV PRN (01:00)
[2020-10-18] MEDS ORDERED: HYDROCODONE/ACETAMINOPHEN 5/325 MG TAB PO PRN (01:00)
[2020-10-18] MEDS ORDERED: GLUCAGON 1MG KIT 1 MG ML IM PRN (01:00)
[2020-10-18] MEDS ORDERED: ACETAMINOPHEN 325 MG TAB PO PRN ×2 (01:00)
[2020-10-18] MEDS ORDERED: NITROGLYCERIN 0.4 MG SL TAB SL PRN (01:00)
[2020-10-18] MEDS: 0.9%NACL 1000ML 1,000 ML IV SCH ×3 (01:04→19:56)
[2020-10-18] MEDS: HYDROCODONE/ACETAMINOPHEN 5/325 MG TAB PO PRN ×5 (01:10→22:53)
[2020-10-18 03:08] VITALS: BP 99/63
[2020-10-18] MEDS ORDERED: ZOSYN 3.375GM+NS 50ML 50 ML IV SCH (05:00)
[2020-10-18 06:20] LABS: HEMATOCRIT 31.1 % (36-48); MEAN CORPUSCULAR HGB CONC 31.2 g/dL (32.0-36.0); MEAN CORPUSCULAR VOLUME 89.9 fL (79-99); PLATELET COUNT (AUTO) 450 K/uL (130-400); RED BLOOD CELL COUNT(AUTO) 3.46 MIL/uL (4.00-5.50); RED CELL DISTRIBUTION WIDTH 14.6 % (11.0-15.5); WHITE BLOOD COUNT (AUTO) 7.1 K/uL (4.8-10.8)
[2020-10-18] MEDS ORDERED: 0.9%NACL 100ML 100 ML ONE (06:33)
[2020-10-18 07:02] VITALS: BP 102/65
[2020-10-18 07:11] LABS: INR 1.12 (0.85-1.15); PROTHROMBIN TIME 12.1 SEC (9.6-11.6)
[2020-10-18 07:12] LABS: PARTIAL THROMBOPLASTIN TIME 28.8 SEC (26.3-35.5)
[2020-10-18 07:24] LABS: ALBUMIN 2.4 g/dL (3.5-5.0); BILIRUBIN,TOTAL 0.4 mg/dL (0.2-1.0); POTASSIUM 3.4 mmol/L (3.5-5.1); TOTAL PROTEIN, SERUM 7.9 g/dL (6.0-8.3)
[2020-10-18 07:30] VITALS: BP 104/73
[2020-10-18 07:35] LABS: EOSINOPHILS % (MANUAL) 1 % (1-6); LYMPHOCYTES % (MANUAL) 38 % (22-44); MAN.DIFF COMMENT-IMPRESSION MANUAL DIFFERENTIAL; MONOCYTES % (MANUAL) 6 % (2-9); PLATELET MORPHOLOGY COMMENT SLIGHT INCREASED; SEGMENTED NEUTROPHILS % 55 % (40-70)
[2020-10-18] MEDS: INSULIN HUMULIN R 100 UNIT/ML 3ML SQ SCH ×4 (10:46→20:43)
[2020-10-18] MEDS: FAMOTIDINE 20MG TAB PO SCH ×2 (10:47→20:40)
[2020-10-18 15:52] VITALS: BP 106/73
[2020-10-18] MEDS: LEVOFLOXACIN 750 MG TABLET PO SCH ×2 (16:50→22:39)
[2020-10-18] MEDS: SULFAMETHOX-TMP DS 800/160 TAB PO SCH ×2 (16:50→22:39)
[2020-10-18 21:10] VITALS: BP 101/74
[2020-10-18 23:54] VITALS: BP 106/70
[2020-10-19] VITALS (8 sets, daily range): BP systolic 107–120; BP diastolic 65–76
[2020-10-19] MEDS ORDERED: MORPHINE 2 MG SYG ONE (00:53)
[2020-10-19] MEDS: 0.9%NACL 1000ML 1,000 ML IV SCH ×2 (05:31→18:32)
[2020-10-19] MEDS: INSULIN HUMULIN R 100 UNIT/ML 3ML SQ SCH ×4 (05:31→21:00)
[2020-10-19] MEDS: SULFAMETHOX-TMP DS 800/160 TAB PO SCH ×2 (09:29→22:29)
[2020-10-19] MEDS: FAMOTIDINE 20MG TAB PO SCH ×2 (09:29→20:58)
[2020-10-19] MEDS: HYDROCODONE/ACETAMINOPHEN 5/325 MG TAB PO PRN (09:30)
[2020-10-19] MEDS: LEVOFLOXACIN 750 MG TABLET PO SCH (10:30)
[2020-10-19] MEDS ORDERED: IODIXANOL 320 MG/ML 100 ML VIAL ONE (12:06)
[2020-10-19] MEDS ORDERED: LIDOCAINE HCL 1% MDV 50ML VIAL ONE (12:06)
[2020-10-19] MEDS ORDERED: FENTANYL CITRATE PF 50 MCG/1 ML 2ML VIAL ONE (12:19)
[2020-10-19] MEDS: MORPHINE 2 MG SYG IVP PRN (19:03)
[2020-10-19] MEDS: INSULIN GLARGINE 100 UNITS/ML 10 ML VIAL SQ SCH (21:01)
[2020-10-20] VITALS: BP 116/80
[2020-10-20] MEDS: HYDROCODONE/ACETAMINOPHEN 5/325 MG TAB PO PRN (03:33)
[2020-10-20] MEDS: 0.9%NACL 1000ML 1,000 ML IV SCH ×2 (03:36→14:33)
[2020-10-20 04:00] VITALS: BP 98/60
[2020-10-20 05:56] LABS: BASOPHILS % (AUTO) 0.4 % (0.0-5.0); EOSINOPHILS % (AUTO) 1.7 % (0.0-8.0); HEMATOCRIT 28.9 % (36-48); MEAN CORPUSCULAR HEMOGLOBIN 28.1 pg (27.0-33.0); MEAN CORPUSCULAR HGB CONC 31.1 g/dL (32.0-36.0); MEAN CORPUSCULAR VOLUME 90.3 fL (79-99); MONOCYTES % (AUTO) 7.4 % (3.0-13.0); NEUTROPHILS % (AUTO) 63.9 % (40.0-77.0); PLATELET COUNT (AUTO) 421 K/uL (130-400); RED CELL DISTRIBUTION WIDTH 14.5 % (11.0-15.5)
[2020-10-20 06:08] LABS: POTASSIUM 4.1 mmol/L (3.5-5.1)
[2020-10-20] MEDS: INSULIN GLARGINE 100 UNITS/ML 10 ML VIAL SQ SCH (06:34)
[2020-10-20] MEDS: INSULIN HUMULIN R 100 UNIT/ML 3ML SQ SCH ×3 (06:35→17:25)
[2020-10-20 08:00] VITALS: BP 103/59
[2020-10-20] MEDS: FAMOTIDINE 20MG TAB PO SCH (09:00)
[2020-10-20 11:46] VITALS: BP 103/70
[2020-10-20] MEDS: SULFAMETHOX-TMP DS 800/160 TAB PO SCH (11:53)
[2020-10-20] MEDS: MORPHINE 2 MG SYG IVP PRN (13:22)
[2020-10-20 16:00] VITALS: BP 106/73
== END 2020-10-20 14:00 | disposition home or self-care (01) | DRG 919 ==
LOC: EDH 21:18 → EDHIP 21:19 → 3DH 10-18 23:25
PROVIDERS: ADMIT Internal Medicine; ATTEND Internal Medicine
PROC: 0F2BX0Z Change Drainage Device in Hepatobiliary Duct, External Approach (ICD-10-PCS; principal; 2020-10-19)
PROC: BF101ZZ Fluoroscopy of Bile Ducts using Low Osmolar Contrast (ICD-10-PCS; 2020-10-19)
DX: T85.510A Breakdown (mechanical) of bile duct prosthesis, initial encounter (principal); A41.9 Sepsis, unspecified organism; K65.1 Peritoneal abscess; I10 Essential (primary) hypertension; R53.81 Other malaise; E78.5 Hyperlipidemia, unspecified; B96.89 Other specified bacterial agents as the cause of diseases classified elsewhere; E66.9 Obesity, unspecified; E10.9 Type 1 diabetes mellitus without complications; Z90.49 Acquired absence of other specified parts of digestive tract; Z68.34 Body mass index [BMI] 34.0-34.9, adult; Z79.899 Other long term (current) drug therapy; Y83.8 Other surgical procedures as the cause of abnormal reaction of the patient, or of later complication, without mention of misadventure at the time of the procedure; Y92.89 Other specified places as the place of occurrence of the external cause
CPT/HCPCS: 36415; 47536; 74176; 80048; 80053; 81003; 81025; 82948; 83605; 83735; 85025; 85610; 85730; 86140; 87040; 87076; 93005; 99156; 99157; C1729; C1769; G0378; J1644; J1815; J2543; J3010; J3490; J7030; Q9967

== ENCOUNTER 2020-10-25 07:57 | Inpatient (IN) | payer OTHER ==
[~2020-10-25] VITALS: Ht 165.1 cm; Wt 84.8 kg
[2020-10-25 08:00] VITALS: BP 104/82
[2020-10-25] MEDS ORDERED: 0.9%NACL 1000ML 1,000 ML IV SCH (08:30)
[2020-10-25 09:05] LABS: APPEARANCE,URINE Clear (CLEAR); BILIRUBIN,URINE Negative (NEGATIVE); COLOR,URINE Dark Yellow (YELLOW); GLUCOSE, URINE (UA) Negative (NEGATIVE); KETONES,URINE Negative (NEGATIVE); LEUKOCYTE ESTERASE ,URINE Trace (NEGATIVE); NITRATE,URINE Negative (NEGATIVE); OCCULT BLOOD,URINE Negative (NEGATIVE); PROTEIN,URINE POS 1+ mg/dL (NEGATIVE)
[2020-10-25 09:12] LABS: BASOPHILS % (AUTO) 0.7 % (0.0-5.0); EOSINOPHILS % (AUTO) 1.6 % (0.0-8.0); HEMATOCRIT 31.5 % (36-48); LYMPHOCYTES % (AUTO) 24.2 % (21.0-51.0); MEAN CORPUSCULAR HGB CONC 31.7 g/dL (32.0-36.0); MEAN CORPUSCULAR VOLUME 88.2 fL (79-99); MONOCYTES % (AUTO) 7.3 % (3.0-13.0); NEUTROPHILS % (AUTO) 65.8 % (40.0-77.0); PLATELET COUNT (AUTO) 488 K/uL (130-400); RED BLOOD CELL COUNT(AUTO) 3.57 MIL/uL (4.00-5.50); RED CELL DISTRIBUTION WIDTH 14.9 % (11.0-15.5); WHITE BLOOD COUNT (AUTO) 6.9 K/uL (4.8-10.8)
[2020-10-25 09:19] VITALS: BP 111/70
[2020-10-25 09:19] LABS: CREATININE 0.9 mg/dL (0.5-1.5); RBC,URINE 0-1 /HPF (0-1); WBC,URINE 0-1 /HPF (0-1)
[2020-10-25 09:20] LABS: BACTERIA,URINE Few /HPF (None Seen)
[2020-10-25] MEDS ORDERED: FENTANYL CITRATE PF 50 MCG/1 ML 2ML VIAL IVP SCH (09:30)
[2020-10-25 09:31] LABS: ALBUMIN 2.6 g/dL (3.5-5.0); BILIRUBIN,TOTAL 0.5 mg/dL (0.2-1.0); MAGNESIUM 1.7 mg/dL (1.80-2.40); TOTAL PROTEIN, SERUM 7.9 g/dL (6.0-8.3)
[2020-10-25] MEDS ORDERED: MAGNESIUM OXIDE 400 MG TABLET PO SCH (10:00)
[2020-10-25] MEDS ORDERED: KCL 20 MEQ ERTAB PO SCH (10:00)
[2020-10-25] MEDS ORDERED: IOHEXOL-350 75 ML VIAL IV ONE (10:11)
[2020-10-25] MEDS ORDERED: KETOROLAC 30MG VIAL (30MG/ML) IV SCH (11:00)
[2020-10-25] MEDS ORDERED: KETOROLAC 30MG VIAL (30MG/ML) ONE (11:32)
[2020-10-25] MEDS ORDERED: FAMOTIDINE 20MG VIAL IV SCH (12:30)
[2020-10-25 17:58] VITALS: BP 103/59
[2020-10-25 21:01] VITALS: BP 122/79
[2020-10-25 21:30] VITALS: BP 128/79
[2020-10-25] MEDS ORDERED: ACETAMINOPHEN WITH CODEINE 1 TAB TAB ONE (23:07)
[2020-10-25 23:50] VITALS: BP 115/77
[2020-10-26] VITALS (12 sets, daily range): BP systolic 97–127; BP diastolic 56–91
[2020-10-26] MEDS: ACETAMINOPHEN WITH CODEINE 1 TAB TAB PO PRN ×2 (00:39→20:50)
[2020-10-26] MEDS: PANTOPRAZOLE 40 MG TAB DR PO SCH (06:39)
[2020-10-26] MEDS ORDERED: POTASSIUM CHLORIDE 10% ELIXIR 20 MEQ/15 ML UDCUP PO PRN (08:00)
[2020-10-26] MEDS ORDERED: LIDOCAINE HCL-MPF 1% 2ML VIAL IV PRN ×2 (08:00)
[2020-10-26] MEDS ORDERED: POTASSIUM CHLORIDE 20MEQ/100ML 100 ML IV PRN ×2 (08:00)
[2020-10-26] MEDS: INSULIN HUMULIN 70/30 100 UNIT/ML 3ML SQ SCH ×2 (09:00→22:23)
[2020-10-26] MEDS ORDERED: LIDOCAINE HCL 1% 20 ML VIAL ONE (11:52)
[2020-10-26] MEDS ORDERED: IODIXANOL 320 MG/ML 100 ML VIAL ONE (11:52)
[2020-10-26] MEDS ORDERED: LIDOCAINE HCL 1% MDV 50ML VIAL ONE (12:06)
[2020-10-26] MEDS: KCL 20 MEQ ERTAB PO PRN ×2 (16:59→20:49)
[2020-10-26] MEDS ORDERED: ONDANSETRON 4MG INJ IVP PRN (21:00)
[2020-10-27] MEDS: KCL 20 MEQ ERTAB PO PRN ×2 (02:02→04:05)
[2020-10-27 03:23] VITALS: BP 117/80
[2020-10-27] MEDS: PANTOPRAZOLE 40 MG TAB DR PO SCH (06:47)
[2020-10-27 08:00] VITALS: BP_SYST 113; BP_SYST 93; BP_DIAS 57; BP_DIAS 78
[2020-10-27] MEDS: INSULIN HUMULIN 70/30 100 UNIT/ML 3ML SQ SCH ×2 (10:15→20:12)
[2020-10-27 12:00] VITALS: BP 113/78
[2020-10-27] MEDS: ACETAMINOPHEN WITH CODEINE 1 TAB TAB PO PRN (12:56)
[2020-10-27 16:00] VITALS: BP 97/59
[2020-10-27] MEDS ORDERED: MAGNESIUM 2GM PREMIX 50ML 50 ML IV PRN (19:00)
[2020-10-27 19:39] VITALS: BP 118/80
[2020-10-27 23:32] VITALS: BP 117/82
[2020-10-28] VITALS (22 sets, daily range): BP systolic 101–127; BP diastolic 51–80
[2020-10-28 05:06] LABS: BASOPHILS % (AUTO) 0.5 % (0.0-5.0); EOSINOPHILS % (AUTO) 2.8 % (0.0-8.0); HEMATOCRIT 31.2 % (36-48); LYMPHOCYTES % (AUTO) 36.8 % (21.0-51.0); MEAN CORPUSCULAR HEMOGLOBIN 27.8 pg (27.0-33.0); MEAN CORPUSCULAR HGB CONC 31.7 g/dL (32.0-36.0); MEAN CORPUSCULAR VOLUME 87.6 fL (79-99); MONOCYTES % (AUTO) 7.7 % (3.0-13.0); PLATELET COUNT (AUTO) 492 K/uL (130-400); RED BLOOD CELL COUNT(AUTO) 3.56 MIL/uL (4.00-5.50); RED CELL DISTRIBUTION WIDTH 14.6 % (11.0-15.5); WHITE BLOOD COUNT (AUTO) 6.1 K/uL (4.8-10.8)
[2020-10-28 05:18] LABS: INR 1.11 (0.85-1.15)
[2020-10-28 05:19] LABS: CREATININE 0.9 mg/dL (0.5-1.5); MAGNESIUM 2.1 mg/dL (1.80-2.40); POTASSIUM 3.6 mmol/L (3.5-5.1)
[2020-10-28 05:20] LABS: PARTIAL THROMBOPLASTIN TIME 26.8 SEC (26.3-35.5)
[2020-10-28] MEDS: PANTOPRAZOLE 40 MG TAB DR PO SCH (06:01)
[2020-10-28] MEDS: KCL 20 MEQ ERTAB PO PRN (06:01)
[2020-10-28] MEDS: INSULIN HUMULIN 70/30 100 UNIT/ML 3ML SQ SCH ×2 (09:00→20:46)
[2020-10-28] MEDS ORDERED: DEXAMETHASONE SOD PHOSPHATE 10MG/ML 1ML VIAL ONE (12:13)
[2020-10-28] MEDS ORDERED: SUCCINYLCHOLINE CHLORIDE 20 MG/ML 10 ML VIAL ONE ×2 (12:13→12:15)
[2020-10-28] MEDS ORDERED: LIDOCAINE PF 100MG/5ML (2%) SYRINGE 5ML ONE ×2 (12:13→12:15)
[2020-10-28] MEDS ORDERED: FENTANYL CITRATE PF 50 MCG/1 ML 2ML VIAL ONE (12:14)
[2020-10-28] MEDS ORDERED: NEOSTIGMINE 5MG/5ML SYR IV ONE (12:14)
[2020-10-28] MEDS ORDERED: PROPOFOL 10 MG/ML 20ML VIAL IV ONE (12:14)
[2020-10-28] MEDS ORDERED: GLYCOPYRROLATE 1 MG/5 ML SYRINGE ONE (12:14)
[2020-10-28] MEDS ORDERED: MIDAZOLAM HCL 1 MG/ML 2ML VIAL ONE (12:14)
[2020-10-28] MEDS ORDERED: ROCURONIUM 10MG/1ML SYR 10 MG/ML ML ONE (12:14)
[2020-10-28] MEDS ORDERED: IODIXANOL 320 MG/ML 100 ML VIAL ONE (12:26)
[2020-10-28] MEDS ORDERED: LIDOCAINE HCL 1% MDV 50ML VIAL ONE (12:44)
[2020-10-28] MEDS: ACETAMINOPHEN WITH CODEINE 1 TAB TAB PO PRN ×2 (14:16→20:23)
[2020-10-28] MEDS: KETOROLAC 30MG VIAL (30MG/ML) IVP PRN ×2 (15:47→22:19)
[2020-10-29 04:03] VITALS: BP 99/67
[2020-10-29] MEDS: PANTOPRAZOLE 40 MG TAB DR PO SCH (06:45)
[2020-10-29] MEDS: ACETAMINOPHEN WITH CODEINE 1 TAB TAB PO PRN (06:49)
[2020-10-29 07:34] VITALS: BP 103/68
[2020-10-29] MEDS: INSULIN HUMULIN 70/30 100 UNIT/ML 3ML SQ SCH ×2 (08:45→21:22)
[2020-10-29 12:00] VITALS: BP 100/59
[2020-10-29] MEDS: KETOROLAC 30MG VIAL (30MG/ML) IVP PRN (12:34)
[2020-10-29 16:00] VITALS: BP 117/63
[2020-10-29] MEDS: TRAMADOL HCL 50 MG TABLET PO SCH ×2 (17:45→21:20)
[2020-10-29 19:43] VITALS: BP 116/69
[2020-10-29] MEDS: GABAPENTIN 100 MG CAPSULE PO SCH (21:19)
[2020-10-29 23:31] VITALS: BP 125/75
[2020-10-30 03:23] VITALS: BP 104/63
[2020-10-30] MEDS: TRAMADOL HCL 50 MG TABLET PO SCH ×4 (03:57→21:49)
[2020-10-30] MEDS: PANTOPRAZOLE 40 MG TAB DR PO SCH (06:37)
[2020-10-30 08:00] VITALS: BP 107/65
[2020-10-30] MEDS: GABAPENTIN 100 MG CAPSULE PO SCH ×3 (09:18→21:49)
[2020-10-30] MEDS: INSULIN HUMULIN 70/30 100 UNIT/ML 3ML SQ SCH ×2 (09:19→21:00)
[2020-10-30 12:00] VITALS: BP 121/72
[2020-10-30] MEDS: KETOROLAC 30MG VIAL (30MG/ML) IVP PRN (12:40)
[2020-10-30 16:00] VITALS: BP 124/75
[2020-10-30 19:15] VITALS: BP 121/68
[2020-10-30 23:21] VITALS: BP 115/69
[2020-10-31] MEDS: TRAMADOL HCL 50 MG TABLET PO SCH ×4 (03:55→21:07)
[2020-10-31 04:20] VITALS: BP 103/63
[2020-10-31] MEDS: PANTOPRAZOLE 40 MG TAB DR PO SCH (06:36)
[2020-10-31 08:00] VITALS: BP 113/71
[2020-10-31] MEDS: GABAPENTIN 100 MG CAPSULE PO SCH ×3 (08:40→21:07)
[2020-10-31] MEDS: INSULIN HUMULIN 70/30 100 UNIT/ML 3ML SQ SCH ×2 (08:44→21:03)
[2020-10-31 12:00] VITALS: BP 104/67
[2020-10-31 16:00] VITALS: BP 100/61
[2020-10-31 19:52] VITALS: BP 105/70
[2020-11-01 00:15] VITALS: BP 114/76
[2020-11-01] MEDS: TRAMADOL HCL 50 MG TABLET PO SCH ×4 (04:07→21:46)
[2020-11-01 04:22] VITALS: BP 104/73
[2020-11-01] MEDS: PANTOPRAZOLE 40 MG TAB DR PO SCH (06:42)
[2020-11-01 08:00] VITALS: BP 103/64
[2020-11-01] MEDS: GABAPENTIN 100 MG CAPSULE PO SCH ×3 (08:05→21:37)
[2020-11-01] MEDS: INSULIN HUMULIN 70/30 100 UNIT/ML 3ML SQ SCH ×2 (08:06→21:00)
[2020-11-01 12:00] VITALS: BP 110/75
[2020-11-01 16:00] VITALS: BP 113/80
[2020-11-01 19:35] VITALS: BP 116/72
[2020-11-02] VITALS (7 sets, daily range): BP systolic 106–120; BP diastolic 64–84
[2020-11-02] MEDS: TRAMADOL HCL 50 MG TABLET PO SCH ×4 (04:37→20:02)
[2020-11-02] MEDS: PANTOPRAZOLE 40 MG TAB DR PO SCH (06:32)
[2020-11-02] MEDS: GABAPENTIN 100 MG CAPSULE PO SCH ×3 (10:18→20:02)
[2020-11-02] MEDS: INSULIN HUMULIN 70/30 100 UNIT/ML 3ML SQ SCH ×2 (10:24→20:07)
[2020-11-03] MEDS: TRAMADOL HCL 50 MG TABLET PO SCH ×2 (03:09→08:47)
[2020-11-03 04:00] VITALS: BP 104/64
[2020-11-03 04:19] LABS: HEMATOCRIT 31.7 % (36-48); MEAN CORPUSCULAR HEMOGLOBIN 28.1 pg (27.0-33.0); MEAN CORPUSCULAR HGB CONC 31.5 g/dL (32.0-36.0); RED BLOOD CELL COUNT(AUTO) 3.56 MIL/uL (4.00-5.50); RED CELL DISTRIBUTION WIDTH 15.2 % (11.0-15.5); WHITE BLOOD COUNT (AUTO) 6.3 K/uL (4.8-10.8)
[2020-11-03 04:38] LABS: ALBUMIN 2.6 g/dL (3.5-5.0); BILIRUBIN,TOTAL 0.4 mg/dL (0.2-1.0); POTASSIUM 3.4 mmol/L (3.5-5.1); TOTAL PROTEIN, SERUM 7.4 g/dL (6.0-8.3)
[2020-11-03 07:39] VITALS: BP 98/64
[2020-11-03] MEDS: PANTOPRAZOLE 40 MG TAB DR PO SCH (08:47)
[2020-11-03] MEDS: GABAPENTIN 100 MG CAPSULE PO SCH ×3 (08:47→20:00)
[2020-11-03] MEDS: INSULIN HUMULIN 70/30 100 UNIT/ML 3ML SQ SCH ×2 (08:48→20:04)
[2020-11-03 11:25] VITALS: BP 101/65
[2020-11-03 15:40] VITALS: BP 102/63
[2020-11-03 20:00] VITALS: BP_SYST 104; BP_SYST 131; BP_DIAS 69; BP_DIAS 77
[2020-11-03] MEDS: ACETAMINOPHEN WITH CODEINE 1 TAB TAB PO PRN (20:00)
[2020-11-03 23:59] VITALS: BP 104/66
[2020-11-04 04:00] VITALS: BP 101/68
[2020-11-04 07:30] VITALS: BP 122/71
[2020-11-04] MEDS: INSULIN HUMULIN 70/30 100 UNIT/ML 3ML SQ SCH (09:30)
[2020-11-04] MEDS: GABAPENTIN 100 MG CAPSULE PO SCH ×2 (09:31→15:05)
[2020-11-04] MEDS: PANTOPRAZOLE 40 MG TAB DR PO SCH (09:31)
[2020-11-04] MEDS: ACETAMINOPHEN WITH CODEINE 1 TAB TAB PO PRN (09:34)
[2020-11-04 11:00] VITALS: BP 105/78
[2020-11-04 16:00] VITALS: BP 111/64
== END 2020-11-04 18:00 | disposition home or self-care (01) | DRG 446 ==
LOC: EDH 07:57 → 3DH 07:58 → OBSVTOIN 07:58 → 3BH 10-27 19:04
PROVIDERS: ADMIT Surgery; ATTEND Surgery
PROC: BF10YZZ Fluoroscopy of Bile Ducts using Other Contrast (ICD-10-PCS; principal; 2020-10-26)
PROC: BF10YZZ Fluoroscopy of Bile Ducts using Other Contrast (ICD-10-PCS; 2020-10-28)
DX: S36.13XA Injury of bile duct, initial encounter (principal); E11.9 Type 2 diabetes mellitus without complications; E87.6 Hypokalemia; E66.01 Morbid (severe) obesity due to excess calories; E83.42 Hypomagnesemia; Z90.49 Acquired absence of other specified parts of digestive tract; Z79.4 Long term (current) use of insulin; Z79.899 Other long term (current) drug therapy; Z90.710 Acquired absence of both cervix and uterus; Z68.31 Body mass index [BMI] 31.0-31.9, adult; X58.XXXA Exposure to other specified factors, initial encounter; Y93.89 Activity, other specified; Y92.89 Other specified places as the place of occurrence of the external cause; Y99.8 Other external cause status
CPT/HCPCS: 36415; 47531; 47532; 74160; 74181; 80048; 80053; 81001; 82550; 82948; 83605; 83690; 83735; 84132; 85025; 85027; 85610; 85730; 87040; 87088; C1729; C1769; C1894; G0378; J0330; J1100; J1644; J1815; J1885; J2001; J2250; J2405; J2704; J2710; J3010; J3475; J3480; J3490; Q9967

== ENCOUNTER 2020-11-16 22:10 | Emergency (ER) | payer MEDICAID, OTHER ==
[~2020-11-16] VITALS: Ht 165.1 cm; Wt 86.2 kg
[2020-11-16 22:36] VITALS: BP 119/79
[2020-11-16 23:29] LABS: BASOPHILS % (AUTO) 0.4 % (0.0-5.0); EOSINOPHILS % (AUTO) 2.2 % (0.0-8.0); HEMATOCRIT 35.4 % (36-48); LYMPHOCYTES % (AUTO) 30.4 % (21.0-51.0); MEAN CORPUSCULAR HEMOGLOBIN 27.9 pg (27.0-33.0); MEAN CORPUSCULAR HGB CONC 30.8 g/dL (32.0-36.0); MEAN CORPUSCULAR VOLUME 90.5 fL (79-99); MONOCYTES % (AUTO) 6.4 % (3.0-13.0); NEUTROPHILS % (AUTO) 60.3 % (40.0-77.0); PLATELET COUNT (AUTO) 395 K/uL (130-400); RED BLOOD CELL COUNT(AUTO) 3.91 MIL/uL (4.00-5.50); WHITE BLOOD COUNT (AUTO) 7.2 K/uL (4.8-10.8)
[2020-11-16 23:34] LABS: APPEARANCE,URINE Clear (CLEAR); BILIRUBIN,URINE Negative (NEGATIVE); COLOR,URINE Yellow (YELLOW); GLUCOSE, URINE (UA) Negative (NEGATIVE); KETONES,URINE Negative (NEGATIVE); LEUKOCYTE ESTERASE ,URINE Trace (NEGATIVE); NITRATE,URINE Negative (NEGATIVE); OCCULT BLOOD,URINE Negative (NEGATIVE); PH,URINE 7.5 (5.0-8.0); PROTEIN,URINE Negative (NEGATIVE); UROBILINOGEN,URINE 0.2 mg/dL (0.2-1.0)
[2020-11-16 23:44] LABS: ALBUMIN 3.2 g/dL (3.5-5.0); BILIRUBIN,TOTAL 0.3 mg/dL (0.2-1.0); CREATININE 0.9 mg/dL (0.5-1.5); POTASSIUM 3.2 mmol/L (3.5-5.1); TOTAL PROTEIN, SERUM 8.2 g/dL (6.0-8.3)
[2020-11-16 23:48] LABS: BACTERIA,URINE None Seen /HPF (None Seen); RBC,URINE None Seen /HPF (0-1); SQUAMOUS EPITHELIAL CELL,UR Few /HPF (0-2); WBC,URINE None Seen /HPF (0-1)
[2020-11-17] MEDS ORDERED: KETOROLAC 30MG VIAL (30MG/ML) IV ONE
[2020-11-17] MEDS ORDERED: ONDANSETRON 4MG INJ IVP ONE
[2020-11-17] MEDS ORDERED: ONDANSETRON 4MG INJ ONE (01:28)
[2020-11-17] MEDS ORDERED: KETOROLAC 30MG VIAL (30MG/ML) ONE (01:28)
[2020-11-17] MEDS ORDERED: IOHEXOL-350 75 ML VIAL IV ONE (01:29)
[2020-11-17] MEDS ORDERED: TRAM50TA4 PO (02:56)
== END 2020-11-17 03:10 | disposition home or self-care (01) ==
LOC: EDH 22:10
DX: G89.18 Other acute postprocedural pain (principal); R10.13 Epigastric pain; E11.9 Type 2 diabetes mellitus without complications; Z90.49 Acquired absence of other specified parts of digestive tract; Z79.1 Long term (current) use of non-steroidal anti-inflammatories (NSAID); Z79.4 Long term (current) use of insulin; Z79.899 Other long term (current) drug therapy
CPT/HCPCS: 36415; 74177; 80053; 81001; 83690; 84703; 85025; 96374; 96375; J1885; J2405; Q9967